=== PATIENT | female | born 1965 | race Two or more races ===

== ENCOUNTER 2018-05-30 12:17 | Inpatient (IN) | payer MEDICAID ==
[2018-05-30 12:31] VITALS: BMI 23.3
[2018-05-30 12:56] VITALS: O2SAT 99
[2018-05-30] MEDS ORDERED: Albuterol HFA 90 mcg/actuation (8 g) INH PRN (14:18)
--- NOTE | 2018-05-30 15:13 | C.PDOC ---
History Of Present Illness 53 y/o female brought in from [facility] for admission with diagnosis of Schizophrenia. Denies SI, HI, or any other physical complaints at this time. Time Seen by Provider: 05/30/18 12:28 Chief Complaint (Nursing): Psychiatric Evaluation History Per: Patient History/Exam Limitations: no limitations Past Medical History Reviewed: Historical Data, Nursing Documentation, Vital Signs Vital Signs: Last Vital Signs Temp Pulse 78 05/30/18 12:56 Resp 17 05/30/18 13:43 BP 121/82 05/30/18 12:56 Pulse Ox 99 05/30/18 12:56 - Medical History PMH: Anemia, Anxiety, Asthma, Bipolar Disorder, Bronchitis, Depression, Deep Vein Thrombosis, Emphysema, Personality Disorder, Pneumonia, Schizophrenia, Sickle Cell Disease, Sexually Transmitted Disease Denies: Diabetes, Hepatitis, HIV, HTN, Chronic Kidney Disease, Seizures Surgical History: No Surg Hx - [facility] Procedures ALCOHOL DETOXIFICATION (04/19/13) EXCISION OF LEFT FOOT SKIN, EXTERNAL APPROACH (05/05/18) EXCISION OF RIGHT FOOT SKIN, EXTERNAL APPROACH (05/05/18) EXCISION OF TOE NAIL, EXTERNAL APPROACH (05/05/18) GROUP PSYCHOTHERAPY (03/10/18) INDIVID PSYCHOTHERAP NEC (07/24/13) INDIVIDUAL PSYCHOTHERAPY, SUPPORTIVE (03/10/18) INSERTION OF INTRALUM DEV INTO INF VENA CAVA, PERC APPROACH (05/24/16) MEDICATION MANAGEMENT (05/02/18) OTHER GROUP THERAPY (07/24/13) PSYCHIA INTERV/EVAL NEC (01/02/14) PSYCHIAT DRUG THERAP NEC (04/30/15) SUPPOR VERBAL PSYCHOTHER (05/25/13) Family History: States: Unknown Family Hx - Social History Hx Tobacco Use: Yes Hx Alcohol Use: Yes Hx Substance Use: Yes (Cocaine) - Immunization History Hx Tetanus Toxoid Vaccination: No Hx Influenza Vaccination: No Hx Pneumococcal Vaccination: No Review Of Systems Except As Marked, All Systems Reviewed And Found Negative. Constitutional: Negative for: Fever, Chills Cardiovascular: Negative for: Chest Pain Respiratory: Negative for: Shortness of Breath Psych: Negative for: Suicidal ideation Physical Exam - Physical Exam Appears: Non-toxic, No Acute Distress, Other (flat affect) Skin: Normal Color, Warm, Dry Head: Atraumatic, Normacephalic Eye(s): bilateral: Normal Inspection Oral Mucosa: Moist Neck: Supple Cardiovascular: Rhythm Regular Respiratory: Normal Breath Sounds, No Rales, No Rhonchi, No Wheezing Gastrointestinal/Abdominal: Soft, No Tenderness Extremity: Normal ROM Neurological/Psych: Oriented x3, Normal Speech ED Course And Treatment - Laboratory Results Result Diagrams: 06/07/18 19:40 06/07/18 19:40 O2 Sat by Pulse Oximetry: 99 (RA) Pulse Ox Interpretation: Normal Medical Decision Making Medical Decision Making: Pt will be admitted under Dr. Hernandez's service. Disposition Doctor Will See Patient In The: Hospital Counseled Patient/Family Regarding: Studies Performed, Diagnosis - Disposition Disposition: HOSPITALIZED Disposition Time: 23:00 Condition: GOOD - Clinical Impression Clinical Impression: Schizophrenia - Scribe Statement The provider has reviewed the documentation as recorded by the Scribe KP All medical record entries made by the Scribe were at my direction and personally dictated by me. I have reviewed the chart and agree that the record accurately reflects my personal performance of the history, physical exam, medical decision making, and the department course for this patient. I have also personally directed, reviewed, and agree with the discharge instructions and disposition.
[2018-05-30] MEDS: Divalproex 500 mg DR Tab PO SCH ×3 (17:30→21:29)
[2018-05-30] MEDS: QUEtiapine 150 mg XR Tab PO SCH (21:30)
[2018-05-31] MEDS: Divalproex 500 mg DR Tab PO SCH ×4 (09:30→22:03)
--- NOTE | 2018-05-31 12:31 | PCM.PSYCH ---
Initial Psychiatric Evaluation - Initial Psychiatric Evaluation Type of Admission: Voluntary Legal Status: Capacity Chief Complaint (in patient's own words): I am not crazy.' History of Present Illness and Precipitating Events: Patient is a 53-year-old female, single with adult children, who is on disability and homeless. She has been living in a snf in [place]. Patient is hard to communicate due to her disorganized thoughts and bizarre behavior. She has a pressured and tangential speech. Patient reports feeling depressed, sad, and miserable since 2009. She states that she gets agitated easily. She denies any current suicidal or homicidal ideation, but she admits attempting suicide by overdosing trazodone and Ativan last year. She admits hearing his boyfriend talking to her and telling her I am mad. She states that she believes his spirit visits her and talks to her. Patient denies being in a detox or heroin program before. She reports that she had multiple hospitalizations in psych unit about 30 times in her life. She denies being diagnosed with a psychiatric disorder stating that I am not schizophrenic or bipolar like other crazy people, I only have behavior problem. Patient was last discharged from [facility] on 05/27/2018. Patient reports using freebase cocaine, about 50 g per month, by smoking with a glass pipe since age 22. She drinks about 6 packs of beer per day for a long time. She smokes 1 ppd. Patient denies any other drug use including benzodiazepines and heroin. She complains about having headache, tremors in her hands, constipation, and feeling cold. She denies nausea, vomiting, stomach pain, numbness or tingling in her extremities. Psych Hx: schizophrenia Medical Hx: COPD, DM type II Family Hx: mother had bipolar disorder and Schizophrenia Current Medications: Active Medications Generic Name Dose Route Start Last Admin Trade Name Freq PRN Reason Stop Dose Admin Albuterol 1 puff 05/30/18 14:18 Ventolin Hfa 90 Mcg/Actuation (8 G) INH RQ4 PRN SOB Divalproex Sodium 500 mg 05/30/18 18:00 05/31/18 09:30 Nas Armando PO Not Given BID BOLIVAR Divalproex Sodium 500 mg 05/30/18 22:00 05/30/18 21:29 Nas Armando PO Not Given HS BOLIVAR Haloperidol 5 mg 05/30/18 14:16 05/31/18 08:06 Haldol PO 5 mg Q4H PRN Administration Agitation Hydroxyzine HCl 50 mg 05/30/18 14:16 05/31/18 06:39 Atarax PO 50 mg Q6H PRN Administration Anxiety Influenza Virus Vaccine 60 mcg 06/02/18 10:00 Fluzone Quad [id number] IM 06/02/18 10:01 .ONCE ONE Lorazepam 1 mg 05/30/18 14:24 05/31/18 08:07 Ativan PO 1 mg Q6H PRN Administration severe anxiety Pneumococcal Polyvalent Vaccine 0.5 ml 06/01/18 10:00 Pneumovax 23 Vaccine IM 06/01/18 10:01 .ONCE ONE Quetiapine Fumarate 100 mg 05/30/18 18:00 05/31/18 09:28 Seroquel PO 100 mg BID BOLIVAR Administration Quetiapine Fumarate 300 mg 05/30/18 22:00 05/30/18 21:30 Seroquel Xr PO Not Given HS BOLIVAR Past Psychiatric History - Past Psychiatric History Previous Treatment History: Inpatient Pertinent Medical Hx (Current Medical&Sleep Prob, Allergies): Allergies Allergy/AdvReac Type Severity Reaction Status Date / Time No Known Allergies Allergy Verified 05/30/18 13:05 Albuterol HFA [Ventolin HFA 90 mcg/actuation (8 g)] 2 puff IH [id number] PRN #1 inhaler 05/27/18 Divalproex [Nas ARMANDO (*BID*)] 500 mg PO TID #45 tcp 05/27/18 Folic Acid 1 mg PO DAILY #14 tab 05/27/18 Gabapentin [Neurontin] 300 mg PO TID #45 cap 05/27/18 Multivitamin Therapeutic Tab [Thera Tab] 1 tab PO 0800 #14 tab 05/27/18 Nicotine 21 mg/24 hr [Nicoderm Cq] 1 patch TD DAILY #14 patch 05/27/18 Quetiapine Fumarate [Seroquel] 200 mg PO DAILY #14 tablet 05/27/18 Quetiapine Fumarate [Seroquel] 300 mg PO HS #14 tab 05/27/18 Thiamine [Vitamin B1 Tab] 100 mg PO DAILY #14 tab 05/27/18 Review of Systems - Review of Systems All systems: reviewed and no additional remarkable complaints except - Psychiatric Psychiatric: Anxiety, Auditory Hallucinations, Irritability, Paranoia, Suicidal Ideation Mental Status Examination - Personal Presentation Personal Presentation: Looks stated age - Affect Affect: Constricted, Depressed - Motor Activity Motor Activity: Calm - Reliability in Providing Information Reliability in Providing Information: Poor, due to alteration in thoughts, Poor, due to altered mood - Speech Speech: Disorganized - Mood Mood: Depressed, Anxious - Formal Thought Process Formal Thought Process: Hallucinations, Delusions, Paranoia, Loosening of associations - Hallucinations/Delusions Hallucinations: Visual, Auditory Delusions: Persecution - Obsessions/Compulsions Obsessions: No Compulsions: No - Cognitive Functions Orientation: Person, Place, Situation, Time Sensorium: Alert Attention/Concentration: Attentive Abstract Thinking: [place] Estimate of Intelligence: Below average Judgement: Imparied, as evidence by: Poor judgement, Imparied, as evidence by: Lack of insight into illness - Risk Risk: Suicidal, Diminished functioning - Limitations Limitations: Living alone DSM 5 DX - DSM 5 DSM 5 Diagnosis: Schizoaffective disorder bipolar type Cocaine use d/o- severe Alcohol use d/o- severe - Recommended/Plan of Treatment Treatment Recommendations and Plan of Treatment: Schizoaffective disorder bipolar type Cocaine use d/o- severe Alcohol use d/o- severe CBT Psychoeducation Supportive therapy As needed medications All risks, benefits and alternatives of the meds discussed, and the pt agreed and understood. Attend groups and activities [place] for abstinence Encourage MAT Smoking cessation with [place] Nicotine patch if needed Depakote Gabapentin for augmentation if needed Seroritul
[2018-05-31] MEDS: QUEtiapine 150 mg XR Tab PO SCH (22:02)
--- NOTE | 2018-05-31 23:14 | PCM.PYCHPN ---
Psychiatric Progress Note - Psychiatric Progress Note Patient seen today, length of contact: 16 min Patient Chief Complaint: I am not crazy.' Problems Identified/Issues Discussed: Patient seen and evaluated, chart reviewed and discussed with the nurse. Pt remained disorganized and internally preoccupied. She remained isolated and withdrawn, and confined to her room. She appeared paranoid and delusional. She is still talking to herself and making a one way conversation. Patient is compliant with medications and denies any side effects. Symptoms are improving but pt needs more time to stabilize. Support and psychoeducation given. Medication Change: Yes Medical Record Reviewed: Yes Mental Status Examination - Cognitive Function Orientation: Person, Place, Situation, Time Memory: Intact Attention: Poor Concentration: Poor Association: Loose Fund of Knowledge: Poor - Mood Mood: Depressed, Anxious - Affect Affect: Constricted, Depressed - Formal Thought Process Formal Thought Process: Hallucinations, Delusions, Paranoia, Loosening of associations - Suicidal Ideation Suicidal Ideation: No - Homicidal Ideation Homicidal Ideation: No Goal/Treatment Plan - Goal/Treatment Plan Need for Continued Stay: Severe depression anxiety, Severe functional impairment Progress Toward Problem(s) and Goals/Treatment Plan: Schizoaffective disorder bipolar type Cocaine use d/o- severe Alcohol use d/o- severe CBT Psychoeducation Supportive therapy As needed medications All risks, benefits and alternatives of the meds discussed, and the pt agreed and understood. Attend groups and activities [place] for abstinence Encourage MAT Smoking cessation with [place] Nicotine patch if needed Depakote Gabapentin for augmentation if needed Seroquel
[2018-06-01] MEDS ORDERED: Pneumococcal 23-Valent Vaccine IM ONE (10:00)
[2018-06-01] MEDS: Divalproex 500 mg DR Tab PO SCH ×3 (10:41→21:37)
[2018-06-01] MEDS: QUEtiapine 150 mg XR Tab PO SCH (21:36)
--- NOTE | 2018-06-02 00:54 | PCM.PYCHPN ---
Psychiatric Progress Note - Psychiatric Progress Note Patient seen today, length of contact: 16 min Patient Chief Complaint: I am not crazy.' Problems Identified/Issues Discussed: Patient seen and evaluated, chart reviewed and discussed with the nurse. Pt remained disorganized and internally preoccupied. She remained isolated and withdrawn, and confined to her room. She appeared paranoid and delusional. She is still talking to herself and making a one way conversation. Patient is compliant with medications and denies any side effects. Symptoms are improving but pt needs more time to stabilize. Support and psychoeducation given. Medication Change: Yes Medical Record Reviewed: Yes Mental Status Examination - Cognitive Function Orientation: Person, Place, Situation, Time Memory: Intact Attention: Poor Concentration: Poor Association: Loose Fund of Knowledge: Poor - Mood Mood: Depressed, Anxious - Affect Affect: Constricted, Depressed - Formal Thought Process Formal Thought Process: Hallucinations, Delusions, Paranoia, Loosening of associations - Suicidal Ideation Suicidal Ideation: No - Homicidal Ideation Homicidal Ideation: No Goal/Treatment Plan - Goal/Treatment Plan Need for Continued Stay: Severe depression anxiety, Severe functional impairment Progress Toward Problem(s) and Goals/Treatment Plan: Schizoaffective disorder bipolar type Cocaine use d/o- severe Alcohol use d/o- severe CBT Psychoeducation Supportive therapy As needed medications All risks, benefits and alternatives of the meds discussed, and the pt agreed and understood. Attend groups and activities [place] for abstinence Encourage MAT Smoking cessation with [place] Nicotine patch if needed Depakote Gabapentin for augmentation if needed Seroquel - Smoking Cessation Smoking Cessation Initiated: No
[2018-06-02] MEDS ORDERED: Influenza Vaccine 60 MCG/0.5 ML SYR (3 yr & up) IM ONE (10:00)
[2018-06-02] MEDS: Divalproex 500 mg DR Tab PO SCH ×3 (10:45→21:34)
--- NOTE | 2018-06-02 15:20 | PCM.BM ---
<NoarobinRachel - Last Filed: 06/02/18 15:18> Treatment Plan Problems - Problems identified on initial assessmt Substance Abuse Date Initiated: 05/30/18 Time Initiated: 13:00 Assessment reference: NA Status: Active Treatment assets and liabiliti Patient Assests: motivated, self-reliant, ADL independent, physically healthy, negotiates basic needs Patient Liabilities: poor support system, substance abuse - Milieu Protocol Maintain good personal hygiene: daily Encourage regular showers, daily Remind patient to perform daily oral care, daily Assist patient to perform ADL's Maintain personal safety: every shift Educate patient to report safety concerns to staff, every shift Monitor environment for contraband/sharps Medication safety: Monitor for expected outcome, potential side effects: every shift, Assess barriers to learning: every shift, Assess readiness for medication education: every shift Milieu Narrative: Schizoaffective disorder bipolar type Cocaine use d/o- severe Alcohol use d/o- severe CBT Psychoeducation Supportive therapy As needed medications All risks, benefits and alternatives of the meds discussed, and the pt agreed and understood. Attend groups and activities [place] for abstinence Encourage MAT Smoking cessation with [place] Nicotine patch if needed Depakote Gabapentin for augmentation if needed Seroquel Discharge/Continuing Care - Treatment Team Participation Patient/Family/SO Statement: Schizoaffective disorder bipolar type Cocaine use d/o- severe Alcohol use d/o- severe CBT Psychoeducation Supportive therapy As needed medications All risks, benefits and alternatives of the meds discussed, and the pt agreed and understood. Attend groups and activities [place] for abstinence Encourage MAT Smoking cessation with [place] Nicotine patch if needed Depakote Gabapentin for augmentation if needed Seroquel <Kanika Jean - Last Filed: 06/05/18 11:49> Family Contact Family involvement: Family/SO is involved Family contact: Patient declines to allow family contact at present - Goals for Treatment Patient goals for treatment: "I need a medical doctor for my back pain." Discharge/Continuing Care - Education Needs Education Needs: Patient Medication, Patient Coping Skills, Patient Placement options, Patient Community resources - Discharge Discharge Criteria: Tolerates medication w/o severe side effects, Reduction of target symptoms Discharge to:: [facility] - Treatment Team Participation Discussed with Family/SO: No Was Patient/Family/SO present at Treatment Team Meeting: Yes
[2018-06-02] MEDS: QUEtiapine 150 mg XR Tab PO SCH (21:26)
--- NOTE | 2018-06-02 22:23 | PCM.PYCHPN ---
Psychiatric Progress Note - Psychiatric Progress Note Patient seen today, length of contact: 15 minutes Patient Chief Complaint: I am feeling better. Problems Identified/Issues Discussed: Patient seen, chart reviewed, case discussed with the staff. Issues related to illness and treatment were discussed with the patient and staff. Reported compliant with treatment with no adverse affects. Tolerating treatment very well. Patient reported feeling better with the treatment. Staff reported that patient was very intrusive and loud before. Patient was calm and cooperative during evaluation. Awake, alert and oriented 3. No psychomotor activity, good eye contact, memory intact. Aftercare discussed with the patient. Wants to go to [facility]. Denied any delusions, auditory or visual hallucinations, suicidal ideations or homicidal ideations at the time of evaluation. Medical Problems: Diabetes mellitus COPD Diagnostic Results: Reviewed DSM 5 Symptoms Update: Improving with treatment Medication Change: No Medical Record Reviewed: Yes Mental Status Examination - Cognitive Function Orientation: Person, Place, Situation, Time Memory: Intact Attention: WNL Concentration: WNL Association: WNL Fund of Knowledge: [facility] Decription of patient's judgement and insights: Good - Mood Mood: Euphoric - Affect Affect: Other (Somewhat manic) - Speech Speech: Appropriate - Formal Thought Process Formal Thought Process: No Impairment Psychotic Thoughts and Behaviors: None - Suicidal Ideation Suicidal Ideation: No - Homicidal Ideation Homicidal Ideation: No Goal/Treatment Plan - Goal/Treatment Plan Need for Continued Stay: Remain at risks for inpatient hospitalization, Discharge may exacerbated symptoms, Severe functional impairment Progress Toward Problem(s) and Goals/Treatment Plan: Patient/staff education. Supportive therapy. Continue treatment as before. Patient wants to go to [facility] for follow-up care after discharge from the hospital. Estimated Date of D/C: 06/06/18 - Smoking Cessation Smoking Cessation Initiated: Yes
[2018-06-03] MEDS: Divalproex 500 mg DR Tab PO SCH ×3 (09:55→21:23)
--- NOTE | 2018-06-03 14:42 | PCM.PYCHPN ---
Psychiatric Progress Note - Psychiatric Progress Note Patient seen today, length of contact: 15 minutes Patient Chief Complaint: I still see spirits in my room. People around me see sometimes demons behind me. Problems Identified/Issues Discussed: Patient seen, chart reviewed, case discussed with the staff. Issues related to illness and treatment were discussed with the patient and staff. Reported compliant with treatment with no adverse affects. Tolerating treatment very well. Patient reported feeling better but reported still seeing spirits in her room. Patient also reported that she heard that someone was saying there was a demon behind her. Staff reported that patient was very intrusive and loud before. Patient was calm and cooperative during evaluation. Awake, alert and oriented 3. No psychomotor activity, good eye contact, memory intact. Aftercare discussed with the patient. Wants to go to [facility]. Denied any delusions, auditory or visual hallucinations, suicidal ideations or homicidal ideations at the time of evaluation. Medical Problems: Diabetes mellitus COPD Diagnostic Results: Reviewed DSM 5 Symptoms Update: Some improvement with treatment but still needs time for stabilization. Medication Change: No Medical Record Reviewed: Yes Mental Status Examination - Cognitive Function Orientation: Person, Place, Situation, Time Memory: Intact Attention: WNL Concentration: WNL Association: [facility] Fund of Knowledge: [facility] Decription of patient's judgement and insights: Good - Mood Mood: Euphoric - Affect Affect: Other (Somewhat manic) - Speech Speech: Appropriate - Formal Thought Process Formal Thought Process: Delusions, Loosening of associations, Flight of ideas, Circumstantial Psychotic Thoughts and Behaviors: None - Suicidal Ideation Suicidal Ideation: No - Homicidal Ideation Homicidal Ideation: No Goal/Treatment Plan - Goal/Treatment Plan Need for Continued Stay: Remain at risks for inpatient hospitalization, Discharge may exacerbated symptoms, Severe functional impairment Progress Toward Problem(s) and Goals/Treatment Plan: Patient/staff education. Supportive therapy. Continue treatment as before. Patient wants to go to [facility] for follow-up care after discharge from the hospital. Estimated Date of D/C: 06/06/18 - Smoking Cessation Smoking Cessation Initiated: Yes
[2018-06-03] MEDS: QUEtiapine 200 mg XR Tab PO SCH (21:22)
[2018-06-04] MEDS: Divalproex 500 mg DR Tab PO SCH ×3 (09:56→21:40)
--- NOTE | 2018-06-04 18:46 | PCM.PYCHPN ---
Psychiatric Progress Note - Psychiatric Progress Note Patient seen today, length of contact: 15 minutes Patient Chief Complaint: I still see spirits in my room. Problems Identified/Issues Discussed: Patient seen, chart reviewed, case discussed with the staff. Issues related to illness and treatment were discussed with the patient and staff. Reported compliant with treatment with no adverse affects. Tolerating treatment very well. Patient reported feeling better but reported still seeing spirits in her room. Staff reported that patient was telling them that she left her spirit somewhere else. We will increase the dose of fluphenazine to 10 mg twice a day. Staff reported that patient is still very intrusive and loud at times. Patient was calm and cooperative during evaluation. Awake, alert and oriented 3. No psychomotor activity, good eye contact, memory intact. Aftercare discussed with the patient. Wants to go to [facility]. Denied any delusions, auditory or visual hallucinations, suicidal ideations or homicidal ideations at the time of evaluation. Medical Problems: Diabetes mellitus COPD Diagnostic Results: Reviewed DSM 5 Symptoms Update: Some improvement with treatment but patient needs more time for stabilization. Medication Change: No Medical Record Reviewed: Yes Mental Status Examination - Cognitive Function Orientation: Person, Place, Situation, Time Memory: Intact Attention: WNL Concentration: WNL Association: WNL Fund of Knowledge: [facility] Decription of patient's judgement and insights: Good - Mood Mood: Anxious - Affect Affect: Constricted - Speech Speech: Appropriate - Formal Thought Process Formal Thought Process: Delusions, Loosening of associations, Flight of ideas, Circumstantial Psychotic Thoughts and Behaviors: None - Suicidal Ideation Suicidal Ideation: No - Homicidal Ideation Homicidal Ideation: No Goal/Treatment Plan - Goal/Treatment Plan Need for Continued Stay: Remain at risks for inpatient hospitalization, Discharge may exacerbated symptoms, Severe functional impairment Progress Toward Problem(s) and Goals/Treatment Plan: Patient/staff education. Supportive therapy. We will increase the dose of fluphenazine to 10 mg twice a day. Continue rest of the treatment as before. Patient wants to go to [facility] for follow-up care after discharge from the hospital. Estimated Date of D/C: 06/06/18 - Smoking Cessation Smoking Cessation Initiated: Yes
[2018-06-04] MEDS: QUEtiapine 200 mg XR Tab PO SCH (21:40)
[2018-06-05] MEDS: Divalproex 500 mg DR Tab PO SCH ×3 (10:30→21:16)
--- NOTE | 2018-06-05 17:57 | PCM.PYCHPN ---
Psychiatric Progress Note - Psychiatric Progress Note Patient seen today, length of contact: 15 minutes Patient Chief Complaint: Today I'm feeling better. I'm not seeing any spirits. Also I am more calm. Problems Identified/Issues Discussed: Patient seen, chart reviewed, case discussed with the staff. Issues related to illness and treatment were discussed with the patient and staff. Reported compliant with treatment with no adverse affects. Tolerating treatment very well. Patient reported feeling better. Patient reported noticing any spirits today and also feeling more calm after increasing dose of Prolixin. Staff also confirmed the above. Patient was calm and cooperative. Awake, alert and oriented 3. No psychomotor activity, good eye contact, memory intact. Aftercare discussed with the patient. Denied any delusions, auditory or visual hallucinations, suicidal ideations or homicidal ideations at the time of evaluation. Medical Problems: Diabetes mellitus COPD Diagnostic Results: Reviewed DSM 5 Symptoms Update: Improving with treatment. Still needs more time for stabilization. Medication Change: No Medical Record Reviewed: Yes Mental Status Examination - Cognitive Function Orientation: Person, Place, Situation, Time Memory: Intact Attention: WNL Concentration: WNL Association: WNL Fund of Knowledge: WNL Decription of patient's judgement and insights: Good - Mood Mood: Anxious (Much less than before) - Affect Affect: Other (Appropriate) - Speech Speech: Appropriate - Formal Thought Process Formal Thought Process: Loosening of associations, Flight of ideas Psychotic Thoughts and Behaviors: None - Suicidal Ideation Suicidal Ideation: No - Homicidal Ideation Homicidal Ideation: No Goal/Treatment Plan - Goal/Treatment Plan Need for Continued Stay: Remain at risks for inpatient hospitalization, Discharge may exacerbated symptoms, Severe functional impairment Progress Toward Problem(s) and Goals/Treatment Plan: Patient/staff education. Supportive therapy. Continue treatment as before. Patient wants to go to [facility] for follow-up care after discharge from the hospital. Estimated Date of D/C: 06/06/18 - Smoking Cessation Smoking Cessation Initiated: Yes
[2018-06-05] MEDS: QUEtiapine 200 mg XR Tab PO SCH (21:16)
[2018-06-06] MEDS: Divalproex 500 mg DR Tab PO SCH ×3 (09:22→21:28)
--- NOTE | 2018-06-06 19:19 | PCM.PYCHPN ---
Psychiatric Progress Note - Psychiatric Progress Note Patient seen today, length of contact: 15 minutes Patient Chief Complaint: I am feeling much better. Problems Identified/Issues Discussed: Patient seen, chart reviewed, case discussed with the staff. Issues related to illness and treatment were discussed with the patient and staff. Reported compliant with treatment with no adverse affects. Tolerating treatment very well. Patient reported feeling better. Patient reported noticing any spirits today and also feeling more calm after increasing dose of Prolixin. Staff also confirmed the above. Patient was calm and cooperative. Awake, alert and oriented 3. No psychomotor activity, good eye contact, memory intact. Aftercare discussed with the patient. Denied any delusions, auditory or visual hallucinations, suicidal ideations or homicidal ideations at the time of evaluation. Medical Problems: Diabetes mellitus COPD Diagnostic Results: Reviewed DSM 5 Symptoms Update: Improving with treatment. Medication Change: No Medical Record Reviewed: Yes Mental Status Examination - Cognitive Function Orientation: Person, Place, Situation, Time Memory: Intact Attention: WNL Concentration: WNL Association: WNL Fund of Knowledge: [facility] Decription of patient's judgement and insights: Good - Mood Mood: Anxious (Much less than before) - Affect Affect: Other (Appropriate) - Speech Speech: Appropriate - Formal Thought Process Formal Thought Process: Loosening of associations, Flight of ideas Psychotic Thoughts and Behaviors: None - Suicidal Ideation Suicidal Ideation: No - Homicidal Ideation Homicidal Ideation: No Goal/Treatment Plan - Goal/Treatment Plan Need for Continued Stay: Remain at risks for inpatient hospitalization, Discharge may exacerbated symptoms, Severe functional impairment Progress Toward Problem(s) and Goals/Treatment Plan: Patient/staff education. Supportive therapy. Continue treatment as before. Patient wants to go to [facility] for follow-up care after discharge from the hospital. Estimated Date of D/C: 06/10/18 - Smoking Cessation Smoking Cessation Initiated: Yes
[2018-06-06] MEDS: QUEtiapine 200 mg XR Tab PO SCH (21:28)
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
[2018-06-07] MEDS: Divalproex 500 mg DR Tab PO SCH ×3 (10:35→21:15)
[2018-06-07 11:02] VITALS: RESP 20; TEMP 97.5
[2018-06-07] MEDS: Simethicone 80 mg Chewtab PO SCH ×3 (14:27→21:14)
--- NOTE | 2018-06-07 17:29 | RAD ---
PROCEDURE: Left Knee Radiographs. HISTORY: Fall, pain COMPARISON: None. FINDINGS: BONES: No acute displaced fracture. Degenerative changes. JOINTS: No dislocation. Joint space narrowing most prominent at the medial compartment. JOINT EFFUSION: No significant joint effusion. OTHER FINDINGS: None. IMPRESSION: Degenerative changes. No acute displaced fracture, dislocation, or significant joint effusion identified. If symptoms persist, or if there is continued clinical concern, x-ray follow-up in 7-10 days should be considered.
--- NOTE | 2018-06-07 18:05 | RAD ---
Indication: Fall, hip pain Left hip with pelvis Comparison: None available Findings: No acute displaced fracture or dislocation identified. IVC filter, partially imaged. Sacroiliac joints appear intact. Partially imaged moderate constipation. Soft tissues appear unremarkable. No evidence of radiopaque foreign body. Impression: No acute displaced fracture or dislocation evident. If high clinical index of suspicion, suggest cross-sectional imaging for further evaluation. Otherwise, if symptoms persist or if there is continued clinical concern, x-ray follow-up in 7-10 days should be considered. IVC filter. Partially imaged moderate constipation.
--- NOTE | 2018-06-07 18:10 | CP.PCM.PCO ---
Physician Communication Note - Physician Communication Note Physician Communication Note: we are awaiting blood work to restart xarelto for known dvt
[2018-06-07 19:45] LABS: BASO % 0.7 % (0.0-2.0); EOS # 0.3 K/uL (0.0-0.7); EOS % 6.3 % (0.0-4.0); HEMOGLOBIN 12.6 g/dL (11.0-16.0); LYMPH # 1.5 K/uL (1.0-4.3); LYMPH % 35.3 % (20.0-40.0); MEAN CELL VOLUME 88.6 fL (81.0-99.0); MEAN CORPUSCULAR HEMOGLOBIN 28.1 pg (27.0-31.0); MEAN CORPUSCULAR HGB CONC 31.8 g/dL (33.0-37.0); MEAN PLATELET VOLUME 9.3 fL (7.2-11.7); MONO # 0.4 K/uL (0.0-0.8); MONO % 9.1 % (0.0-10.0); NEUT % 48.6 % (50.0-75.0); NRBC % 0.2 % (0.0-2.0); RBC 4.47 Mil/uL (3.80-5.20); RED CELL DISTRIBUTION WIDTH 17.4 % (11.5-14.5); WHITE BLOOD COUNT 4.2 K/uL (4.8-10.8)
[2018-06-07 19:59] LABS: ALB/GLOB RATIO 1.4 (1.0-2.1); ALBUMIN 4.3 g/dL (3.5-5.0); ALT/SGPT 27 U/L (9-52); AST/SGOT 27 U/L (14-36); BLOOD UREA NITROGEN 29 mg/dL (7-17); CALCIUM 9.7 mg/dl (8.6-10.4); GFR NON-AFRICAN AMERICAN > 60
[2018-06-07] MEDS: QUEtiapine 200 mg XR Tab PO SCH (21:14)
[2018-06-08] MEDS: Simethicone 80 mg Chewtab PO SCH ×4 (10:25→22:37)
[2018-06-08] MEDS: Divalproex 500 mg DR Tab PO SCH ×3 (10:26→22:37)
[2018-06-08 14:30] LABS: INR 1.1; PROTHROMBIN TIME 12.2 SECONDS (9.7-12.2)
[2018-06-08] MEDS: Naproxen 275 mg Tab PO PRN (17:55)
--- NOTE | 2018-06-08 18:01 | CP.PCM.PN ---
Subjective - Date & Time of Evaluation Date of Evaluation: 06/08/18 Time of Evaluation: 18:01 Objective - Vital Signs/Intake and Output Vital Signs (last 24 hours): Temp Pulse Resp BP Pulse Ox 97.5 F L 103 H 20 111/77 99 06/07/18 11:01 06/08/18 16:07 06/07/18 11:01 06/08/18 16:07 05/30/18 15:15 - Medications Medications: Current Medications Acetaminophen (Tylenol 325mg Tab) 650 mg PO Q6 PRN PRN Reason: Pain, Mild (1-3) Last Admin: 06/06/18 23:25 Dose: 650 mg Albuterol (Ventolin Hfa 90 Mcg/Actuation (8 G)) 1 puff INH RQ4 PRN PRN Reason: SOB Last Admin: 06/02/18 01:20 Dose: 1 puff Apixaban (Eliquis) 5 mg PO BID [facility] Last Admin: 06/08/18 17:11 Dose: 5 mg Benztropine Mesylate (Cogentin) 1 mg PO BID [facility] Last Admin: 06/08/18 17:11 Dose: 1 mg Divalproex Sodium (Depakote Dr) 500 mg PO BID [facility] Last Admin: 06/08/18 17:11 Dose: 500 mg Divalproex Sodium (Depakote Dr) 500 mg PO HS [facility] Last Admin: 06/07/18 21:15 Dose: 500 mg Docusate Sodium (Colace) 100 mg PO DAILY [facility] Last Admin: 06/08/18 10:25 Dose: 100 mg Fluphenazine HCl (Prolixin) 10 mg PO BID [facility] Last Admin: 06/08/18 17:10 Dose: 10 mg Gabapentin (Neurontin) 300 mg PO BID [facility] Last Admin: 06/08/18 17:11 Dose: 300 mg Haloperidol (Haldol) 5 mg PO Q4H PRN PRN Reason: Agitation Last Admin: 06/08/18 13:45 Dose: 5 mg Hydroxyzine HCl (Atarax) 50 mg PO Q6H PRN PRN Reason: Anxiety Last Admin: 06/08/18 13:45 Dose: 50 mg Naproxen (Anaprox) 275 mg PO BID PRN PRN Reason: Pain, Mild (1-3) Last Admin: 06/08/18 17:55 Dose: 275 mg Nicotine (Nicoderm Cq) 1 patch TD DAILY [facility] Last Admin: 06/08/18 10:25 Dose: 1 patch Quetiapine Fumarate (Seroquel) 100 mg PO BID [facility] Last Admin: 06/08/18 17:11 Dose: 100 mg Quetiapine Fumarate (Seroquel Xr) 400 mg PO HS [facility] Last Admin: 06/07/18 21:14 Dose: 400 mg Simethicone (Mylicon Chew Tab) 80 mg PO QID [facility] Last Admin: 06/08/18 17:10 Dose: 80 mg - Labs Labs: 06/07/18 19:40 06/07/18 19:40 PT 12.2 SECONDS (9.7-12.2) 06/08/18 14:22 INR 1.1 06/08/18 14:22
--- NOTE | 2018-06-08 18:01 | CP.PCM.PN ---
Subjective - Date & Time of Evaluation Date of Evaluation: 06/08/18 Time of Evaluation: 18:02 - Subjective Subjective: PGY-2 Progress Note Patient seen and examined at bedside. Per nursing no acute events occurred overnight. Patient agigtated during today's visit. ROS was limited due to emotional state. Objective - Vital Signs/Intake and Output Vital Signs (last 24 hours): Temp Pulse Resp BP Pulse Ox 97.5 F L 103 H 20 111/77 99 06/07/18 11:01 06/08/18 16:07 06/07/18 11:01 06/08/18 16:07 05/30/18 15:15 - Medications Medications: Current Medications Acetaminophen (Tylenol 325mg Tab) 650 mg PO Q6 PRN PRN Reason: Pain, Mild (1-3) Last Admin: 06/06/18 23:25 Dose: 650 mg Albuterol (Ventolin Hfa 90 Mcg/Actuation (8 G)) 1 puff INH RQ4 PRN PRN Reason: SOB Last Admin: 06/02/18 01:20 Dose: 1 puff Apixaban (Eliquis) 5 mg PO BID [facility] Last Admin: 06/08/18 17:11 Dose: 5 mg Benztropine Mesylate (Cogentin) 1 mg PO BID [facility] Last Admin: 06/08/18 17:11 Dose: 1 mg Divalproex Sodium (Depakote Dr) 500 mg PO BID [facility] Last Admin: 06/08/18 17:11 Dose: 500 mg Divalproex Sodium (Depakote Dr) 500 mg PO HS [facility] Last Admin: 06/07/18 21:15 Dose: 500 mg Docusate Sodium (Colace) 100 mg PO DAILY [facility] Last Admin: 06/08/18 10:25 Dose: 100 mg Fluphenazine HCl (Prolixin) 10 mg PO BID [facility] Last Admin: 06/08/18 17:10 Dose: 10 mg Gabapentin (Neurontin) 300 mg PO BID [facility] Last Admin: 06/08/18 17:11 Dose: 300 mg Haloperidol (Haldol) 5 mg PO Q4H PRN PRN Reason: Agitation Last Admin: 06/08/18 13:45 Dose: 5 mg Hydroxyzine HCl (Atarax) 50 mg PO Q6H PRN PRN Reason: Anxiety Last Admin: 06/08/18 13:45 Dose: 50 mg Naproxen (Anaprox) 275 mg PO BID PRN PRN Reason: Pain, Mild (1-3) Last Admin: 06/08/18 17:55 Dose: 275 mg Nicotine (Nicoderm Cq) 1 patch TD DAILY [facility] Last Admin: 06/08/18 10:25 Dose: 1 patch Quetiapine Fumarate (Seroquel) 100 mg PO BID [facility] Last Admin: 06/08/18 17:11 Dose: 100 mg Quetiapine Fumarate (Seroquel Xr) 400 mg PO HS [facility] Last Admin: 06/07/18 21:14 Dose: 400 mg Simethicone (Mylicon Chew Tab) 80 mg PO QID [facility] Last Admin: 06/08/18 17:10 Dose: 80 mg - Labs Labs: 06/07/18 19:40 06/07/18 19:40 PT 12.2 SECONDS (9.7-12.2) 06/08/18 14:22 INR 1.1 06/08/18 14:22 - Head Exam Head Exam: ATRAUMATIC, NORMAL INSPECTION - Eye Exam Eye Exam: EOMI, Normal appearance, PERRL. absent: Periorbital tenderness Pupil Exam: NORMAL ACCOMODATION, PERRL - ENT Exam ENT Exam: Mucous Membranes Moist, Normal Oropharynx. absent: Normal External Ear Exam - Respiratory Exam Respiratory Exam: Clear to Ausculation Bilateral, NORMAL BREATHING PATTERN. absent: Prolonged Expiratory Phase, Respiratory Distress - Cardiovascular Exam Cardiovascular Exam: REGULAR RHYTHM, RRR, +S1, +S2. absent: Rubs - GI/Abdominal Exam GI & Abdominal Exam: Soft, Normal Bowel Sounds. absent: Hyperactive Bowel Sounds - Neurological Exam Neurological Exam: Alert, Awake, Normal Gait, Oriented x3 - Psychiatric Exam Psychiatric exam: Normal Affect, Normal Mood. absent: Depressed - Skin Skin Exam: Dry, Intact Assessment and Plan - Assessment and Plan (Free Text) Plan: 53 year old female with a past medical history od schizophrenia, depression, esble uti, copd, right lower extremity dvt, sickle cell train, dm2 who was consulted by medicine for left lower extremity pain for 3 days. Plan: Left lower extremity pain -Patient has history of DVT in Right leg s/p IVC filter placement. Patient was taking Xarelto up until about a month and a half ago. Patient [place] -Arterial doppler ordered. Will f/u with results -Venous duplex ordered. Will f/u with results -Left knee xray ordered :Negative -Left hip xray ordered :Negative CRP: 2.1 -ESR,,RF ordered. Will f/u with results. Medications: Eliquis 5mg PO BID Hx Schizophrenia -Managment per Psychiartry -Prolixin 10mg PO BID Hx Depression -Managment per Psychiatry COPD -Ventolin 1 puff INH RQ4 PRN Tobacco abuse -Nicotine patch 21mg Daily Constipation/gas -Colace 100 MG PO Daily -Simethacone 80mg PO QID Dispo: Upon signing off/discharge patient will be provided Eliquis voucher. Will continue to follow and this time and await doppler and duplex studies of the lower extremities. Plan discussed with Dr. Sebastian. Beni Infante, PGY-2
[2018-06-08] MEDS: QUEtiapine 200 mg XR Tab PO SCH (22:37)
--- NOTE | 2018-06-09 06:36 | PCM.PYCHPN ---
Psychiatric Progress Note - Psychiatric Progress Note Patient seen today, length of contact: 15 minutes Patient Chief Complaint: I FEEL BETTER Problems Identified/Issues Discussed: PT SEEN AND EXAMINED D/W TEAM D/W PT HOW SUBSTANCE ABUSE AFFECTS MENTAL HEALTH Medical Problems: NOTHING ACUTE Diagnostic Results: REVIEWED Medication Change: No Medical Record Reviewed: Yes Mental Status Examination - Cognitive Function Orientation: Person, Place, Situation, Time Memory: Intact Attention: WNL Concentration: WNL Association: WNL - Mood Mood: Anxious (Much less than before) - Affect Affect: Other (APPROPRIATE) - Speech Speech: Appropriate - Formal Thought Process Formal Thought Process: Hallucinations, Delusions, Loosening of associations, Flight of ideas, Other (LESS INTENSE SYMPTOMOLOGY) - Suicidal Ideation Suicidal Ideation: No - Homicidal Ideation Homicidal Ideation: No Goal/Treatment Plan - Goal/Treatment Plan Need for Continued Stay: Remain at risks for inpatient hospitalization, Severe functional impairment Progress Toward Problem(s) and Goals/Treatment Plan: SCHIZOAFFECTIVE DISORDER: DEPAKOTE SEROQUEL SUPPORTIVE PSYCHOTHERAPY ALCOHOL USE DISORDER [place] CBT GROUP THERAPY COCAINE USE DISORDER: [place] CBT PSYCHOEDUCATION Estimated Date of D/C: 06/10/18 - Smoking Cessation Smoking Cessation Initiated: No
--- NOTE | 2018-06-09 06:42 | PCM.PYCHPN ---
Psychiatric Progress Note - Psychiatric Progress Note Patient seen today, length of contact: 15 minutes Patient Chief Complaint: I NEED TO FIND A PLACE TO LIVE Problems Identified/Issues Discussed: PT SEEN AND EXANMINED D/W TEAM D/W PT THE NEED FOR ADHERENCE TO TREATMENT Medical Problems: NOTHING ACUTE Diagnostic Results: REVIEWED Medication Change: No Medical Record Reviewed: Yes Mental Status Examination - Cognitive Function Orientation: Person, Place, Situation, Time Memory: Intact Attention: WNL Concentration: WNL Association: WNL Fund of Knowledge: WNL - Mood Mood: Anxious (Much less than before) - Affect Affect: Blunted, Other (APPROPRIATE) - Speech Speech: Appropriate - Formal Thought Process Formal Thought Process: Hallucinations, Delusions, Paranoia, Loosening of associations, Flight of ideas, Other (LESS INTENSE SYMPTOMOLOGY) - Suicidal Ideation Suicidal Ideation: No - Homicidal Ideation Homicidal Ideation: No Goal/Treatment Plan - Goal/Treatment Plan Need for Continued Stay: Remain at risks for inpatient hospitalization, Discharge may exacerbated symptoms, Severe functional impairment Progress Toward Problem(s) and Goals/Treatment Plan: SCHIZOAFFECTIVE D/O DEPAKOTE SEROQUEL [place] CBT SUPPORTIVE PSYCHOTHERAPY ALCOHOL USE DISORDER: [place] CBT COCAINE USE DISORDER: CBT [place] SUPPORTIVE PSYCHOTHERAPY Estimated Date of D/C: 06/10/18 - Smoking Cessation Smoking Cessation Initiated: No
--- NOTE | 2018-06-09 07:42 | CP.PCM.PN ---
<Bola Monique - Last Filed: 06/09/18 17:40> Subjective - Date & Time of Evaluation Date of Evaluation: 06/09/18 Time of Evaluation: 07:42 - Subjective Subjective: Bola oMnique PGY-1, medicine progress note Pt seen and examined at bedside. No acute events overnight. Pt is resting comfortably and eating breakfast. She states that the left lower leg pain only occurs when she is laying down. Pt is complaining of lower back gaxiola bilatrally, which she states is chronic. Pt denies fever, chills, chest pain, sob, abdominal pain, n/v/d, urinary complaints, bowel changes, hematochezia, melena, paresthesias. Objective - Vital Signs/Intake and Output Vital Signs (last 24 hours): Temp Pulse Resp BP Pulse Ox 97.5 F L 103 H 20 111/77 99 06/07/18 11:01 06/08/18 16:07 06/07/18 11:01 06/08/18 16:07 05/30/18 15:15 - Medications Medications: Current Medications Acetaminophen (Tylenol 325mg Tab) 650 mg PO Q6 PRN PRN Reason: Pain, Mild (1-3) Last Admin: 06/06/18 23:25 Dose: 650 mg Albuterol (Ventolin Hfa 90 Mcg/Actuation (8 G)) 1 puff INH RQ4 PRN PRN Reason: SOB Last Admin: 06/02/18 01:20 Dose: 1 puff Apixaban (Eliquis) 5 mg PO BID [facility] Last Admin: 06/08/18 17:11 Dose: 5 mg Benztropine Mesylate (Cogentin) 1 mg PO BID [facility] Last Admin: 06/08/18 17:11 Dose: 1 mg Divalproex Sodium (Depakote Dr) 500 mg PO BID [facility] Last Admin: 06/08/18 17:11 Dose: 500 mg Divalproex Sodium (Depakote Dr) 500 mg PO HS [facility] Last Admin: 06/08/18 22:37 Dose: 500 mg Docusate Sodium (Colace) 100 mg PO DAILY [facility] Last Admin: 06/08/18 10:25 Dose: 100 mg Fluphenazine HCl (Prolixin) 10 mg PO BID [facility] Last Admin: 10/14/18 17:10 Dose: 10 mg Gabapentin (Neurontin) 300 mg PO BID [facility] Last Admin: 06/08/18 17:11 Dose: 300 mg Haloperidol (Haldol) 5 mg PO Q4H PRN PRN Reason: Agitation Last Admin: 06/08/18 22:37 Dose: 5 mg Hydroxyzine HCl (Atarax) 50 mg PO Q6H PRN PRN Reason: Anxiety Last Admin: 06/08/18 22:37 Dose: 50 mg Naproxen (Anaprox) 275 mg PO BID PRN PRN Reason: Pain, Mild (1-3) Last Admin: 06/08/18 17:55 Dose: 275 mg Nicotine (Nicoderm Cq) 1 patch TD DAILY [facility] Last Admin: 06/08/18 10:25 Dose: 1 patch Quetiapine Fumarate (Seroquel) 100 mg PO BID [facility] Last Admin: 06/08/18 17:11 Dose: 100 mg Quetiapine Fumarate (Seroquel Xr) 400 mg PO HS [facility] Last Admin: 06/08/18 22:37 Dose: 400 mg Simethicone (Mylicon Chew Tab) 80 mg PO QID [facility] Last Admin: 06/08/18 22:37 Dose: 80 mg - Labs Labs: 06/07/18 19:40 06/07/18 19:40 PT 12.2 SECONDS (9.7-12.2) 06/08/18 14:22 INR 1.1 06/08/18 14:22 - Constitutional Appears: Non-toxic, No Acute Distress - Head Exam Head Exam: NORMAL INSPECTION - Eye Exam Eye Exam: EOMI, Normal appearance - ENT Exam ENT Exam: Mucous Membranes Moist - Neck Exam Neck Exam: Normal Inspection - Respiratory Exam Respiratory Exam: Clear to Ausculation Bilateral, NORMAL BREATHING PATTERN. absent: Rales, Rhonchi, Wheezes, Respiratory Distress - Cardiovascular Exam Cardiovascular Exam: REGULAR RHYTHM, +S1, +S2 - GI/Abdominal Exam GI & Abdominal Exam: Soft, Normal Bowel Sounds. absent: Distended, Firm, Guar ding, Rigid, Tenderness - Extremities Exam Additional comments: (+) left lower extremity is swollen, from the knee down, when compared to right lower extremity - Back Exam Back Exam: NORMAL INSPECTION, paraspinal tenderness (mild bilateral paravertebral lumbar tenderness ). absent: CVA tenderness (L), CVA tenderness ( R), vertebral tenderness - Neurological Exam Neurological Exam: Alert, Awake, Normal Gait - Psychiatric Exam Psychiatric exam: Normal Affect, Normal Mood - Skin Skin Exam: Dry, Warm Additional comments: chronic venous stasis changes bilaterally Assessment and Plan - Assessment and Plan (Free Text) Assessment: 53 year old female with a past medical history od schizophrenia, depression, esbl uti, copd, right lower extremity dvt, sickle cell train, dm2 who was consulted by medicine for left lower extremity pain for 3 days. Plan: Left lower extremity pain -Patient has history of DVT in Right leg s/p IVC filter placement. Patient was taking Xarelto up until about a month and a half ago. Patient reports her medicine being [place] light rail. -Left lower extremity doppler prelim shows DVT; f/u official report -Left knee xray ordered :Negative -Left hip xray ordered :Negative CRP: 2.1, normal -Continue Eliquis 5 mg PO BID -Pt provided with prescription and voucher for eliquis Hx Schizophrenia -Managment per Psychiartry -Prolixin 10mg PO BID Hx Depression -Managment per Psychiatry COPD -Ventolin 1 puff INH RQ4 PRN Tobacco abuse -Nicotine patch 21mg Daily Constipation/gas -Colace 100 MG PO Daily -Simethacone 80mg PO QID Dispo: Pt instructed to continue Eliquis 5 mg PO BID as treatment for DVT. Plan discussed with attending physician, Dr. Willis <David Willis - Last Filed: 06/19/18 18:01> Objective - Vital Signs/Intake and Output Vital Signs (last 24 hours): Temp Pulse Resp BP Pulse Ox 97.5 F L 91 H 20 128/82 99 06/07/18 11:01 06/09/18 16:01 06/07/18 11:01 06/09/18 16:01 06/12/18 16:45 - Labs Labs: 06/07/18 19:40 06/07/18 19:40 PT 12.2 SECONDS (9.7-12.2) 06/08/18 14:22 INR 1.1 06/08/18 14:22 Attending/Attestation - Attestation I have personally seen and examined this patient.: Yes I have fully participated in the care of the patient.: Yes I have reviewed all pertinent clinical information, including history, physical exam and plan: Yes Notes (Text): Left lower extremity pain -Patient has history of DVT in Right leg s/p IVC filter placement. Patient was taking Xarelto up until about a month and a half ago. Patient reports her [place] rail. -Left lower extremity doppler prelim shows acute DVT start Elequis
[2018-06-09] MEDS: Divalproex 500 mg DR Tab PO SCH ×3 (09:40→21:30)
[2018-06-09] MEDS: Simethicone 80 mg Chewtab PO SCH ×4 (09:40→21:30)
--- NOTE | 2018-06-09 11:34 | PCM.BM ---
<TedKanika - Last Filed: 06/09/18 11:33> Treatment Plan Problems - Problems identified on initial assessmt Substance Abuse Date Initiated: 05/30/18 Time Initiated: 13:00 Assessment reference: NA Status: Active Treatment assets and liabiliti Patient Assests: motivated, self-reliant, ADL independent, physically healthy, negotiates basic needs Patient Liabilities: poor support system, substance abuse - Milieu Protocol Maintain good personal hygiene: daily Encourage regular showers, daily Remind patient to perform daily oral care, daily Assist patient to perform ADL's Maintain personal safety: every shift Educate patient to report safety concerns to staff, every shift Monitor environment for contraband/sharps Medication safety: Monitor for expected outcome, potential side effects: every shift, Assess barriers to learning: every shift, Assess readiness for medication education: every shift Milieu Narrative: SCHIZOAFFECTIVE D/O DEPAKOTE SEROQUEL [place] [facility] SUPPORTIVE PSYCHOTHERAPY ALCOHOL USE DISORDER: [place] CBT COCAINE USE DISORDER: CBT [place] SUPPORTIVE PSYCHOTHERAPY Family Contact Family involvement: Family/SO is involved Family contact: Patient declines to allow family contact at present - Goals for Treatment Patient goals for treatment: "I need a medical doctor for my back pain." Discharge/Continuing Care - Education Needs Education Needs: Patient Medication, Patient Coping Skills, Patient Placement options, Patient Community resources - Discharge Discharge Criteria: Tolerates medication w/o severe side effects, Reduction of target symptoms Discharge to:: [facility] - Treatment Team Participation Patient/Family/SO Statement: SCHIZOAFFECTIVE D/O DEPAKOTE SEROQUEL [place] [facility] SUPPORTIVE PSYCHOTHERAPY ALCOHOL USE DISORDER: [place] C[facility] COCAINE USE DISORDER: CBT [place] SUPPORTIVE PSYCHOTHERAPY Discussed with Family/SO: No Was Patient/Family/SO present at Treatment Team Meeting: Yes Treatment Plan Review - Problem Substance Abuse Time Initiated: 13:00 - Discharge / Continuing Care Discharge to:: [facility] Behavior[facility] Health Services: Partial hospital Health Needs: Medications/Rx, Alcohol/Drug treatment <Robbie Esquivel - Last Filed: 06/09/18 15:17> Treatment Plan Review - Problem Substance Abuse Date Initiated: 06/09/18 Time Initiated: 15:17 Progress toward outcomes: improved
[2018-06-09] MEDS: Naproxen 275 mg Tab PO PRN (15:54)
[2018-06-09 16:01] VITALS: BP 128/82; PULSE 91
[2018-06-09] MEDS: QUEtiapine 200 mg XR Tab PO SCH (21:31)
--- NOTE | 2018-06-09 22:50 | PCM.PYCHPN ---
Psychiatric Progress Note - Psychiatric Progress Note Patient seen today, length of contact: 15 minutes Patient Chief Complaint: I am feeling better.' Problems Identified/Issues Discussed: Patient seen and evaluated, chart reviewed and discussed with the nurse. Pt report improvement in her paranoia and voices. She is not talking to herself anymore. She remained isolated and withdrawn, and confined to her room. Patient is compliant with medications and denies any side effects. Symptoms are improving but pt needs more time to stabilize. Support and psychoeducation given. Medication Change: No Medical Record Reviewed: Yes Mental Status Examination - Cognitive Function Orientation: Person, Place, Situation, Time Memory: Intact Attention: WNL Concentration: WNL Association: WNL Fund of Knowledge: WNL - Mood Mood: Anxious (Much less than before) - Affect Affect: Blunted, Other (APPROPRIATE) - Speech Speech: Appropriate - Formal Thought Process Formal Thought Process: Hallucinations, Delusions, Paranoia, Loosening of associations, Flight of ideas, Other (LESS INTENSE SYMPTOMOLOGY) - Suicidal Ideation Suicidal Ideation: No - Homicidal Ideation Homicidal Ideation: No Goal/Treatment Plan - Goal/Treatment Plan Need for Continued Stay: Remain at risks for inpatient hospitalization, Discharge may exacerbated symptoms, Severe functional impairment Progress Toward Problem(s) and Goals/Treatment Plan: Schizoaffective disorder bipolar type Cocaine use d/o- severe Alcohol use d/o- severe CBT Psychoeducation Supportive therapy As needed medications All risks, benefits and alternatives of the meds discussed, and the pt agreed and understood. Attend groups and activities MA for abstinence Encourage MAT Smoking cessation with MA Nicotine patch if needed Depakote Gabapentin for augmentation if needed Seroquel Estimated Date of D/C: 06/10/18
[2018-06-10] MEDS: Divalproex 500 mg DR Tab PO SCH (09:43)
[2018-06-10] MEDS: Simethicone 80 mg Chewtab PO SCH (09:48)
--- NOTE | 2018-06-10 10:23 | PCM.PYCHDC ---
Mental Status Examination - Mental Status Examination Orientation: Person, Place, Situation, Time Memory: Intact Mood: Neutral Affect: Constricted Attention: WNL Concentration: WNL Association: WNL Fund of Knowledge: WNL Formal Thought Process: No Impairment Description of patient's judgement and insight: good,fair Psychotic Thoughts and Behaviors: denies any AVH Suicidal Ideation: No Current Homicidal Ideation?: No Discharge Summary - Discharge Note Reason for Hospitalization: Patient is a 53-year-old female, single with adult children, who is on disability and homeless. She has been living in a [facility] in [place]. Patient is hard to communicate due to her disorganized thoughts and bizarre behavior. She has a pressured and tangential speech. Patient reports feeling depressed, sad, and miserable since 2009. She states that she gets agitated easily. She denies any current suicidal or homicidal ideation, but she admits attempting suicide by overdosing trazodone and Ativan last year. She admits hearing his boyfriend talking to her and telling her I am mad. She states that she believes his spirit visits her and talks to her. Patient denies being in a detox or heroin program before. She reports that she had multiple hospitalizations in psych unit about 30 times in her life. She denies being diagnosed with a psychiatric disorder stating that I am not schizophrenic or bipolar like other crazy people, I only have behavior problem. Patient was last discharged from [facility] on 05/27/2018. Patient reports using freebase cocaine, about 50 g per month, by smoking with a glass pipe since age 22. She drinks about 6 packs of beer per day for a long time. She smokes 1 ppd. Patient denies any other drug use including benzodiazepines and heroin. She complains about having headache, tremors in her hands, constipation, and feeling cold. She denies nausea, vomiting, stomach pain, numbness or tingling in her extremities. Consultations:: List each consultation separately and include: 1. Reason for request. 2. Findings. 3. Follow-up Summary of Hospital Course include:: 1. Description of specific treatment plan utilized for patients during their course of treatmen. 2. Summarize the time- course for resolution of acute symptoms and/or regressed behaviors. 3. Describe issues identified and worked on during hospitalization. 4. Describe medication utilized. 5. Describe medical problems identified and treated. 6. Reassessment of suicide risk Summary of Hospital Course: During the course of her stay, patient (pt) started progressively improving and no longer remained irritable, disorganized and paranoid. Her mood and anxiety were improved and she started attending groups and meetings and started socializing. Patient denied any feelings of hopelessness, helplessness, and worthlessness, denied any problem with the sleep or appetite, denied suicidal ideation or homicidal ideation. Pt denied any auditory or visual hallucinations. She denied any withdrawal symptoms. Pt was treated with medications along with supportive therapy, milieu therapy and group therapy. Some changes were made in her current medications and patient was discharged on following medications. She tolerated these medications very we ll and denied any side effects. - Final Diagnosis (DSM 5) Condition upon Discharge: GOOD DSM 5: Schizoaffective disorder bipolar type Cocaine use d/o- severe Alcohol use d/o- severe Disposition: HOME/ ROUTINE Follow-up Treatment Plan: Followup: She was discharged to the [facility] program in [place], to follow-up with after care. Education: Pt was educated and counseled about the risks and benefits of taking and not taking medications. Pt was educated and counseled about the risks of drinking and abusing drugs. Pt was educated and counseled to go to the ER or call 911 if pt develop suicidal ideation or homicidal ideation, worsening of symptoms or severe side effects of the meds. Prescriptions/Medication Reconciliation: Divalproex [Depakote DR] 500 mg PO HS #30 tcp Divalproex [Depakote DR] 500 mg PO BID #60 tcp fluPHENAZine [Prolixin] 10 mg PO BID #60 tab QUEtiapine [Seroquel] 100 mg PO DAILY #30 tab QUEtiapine [Seroquel XR] 200 mg PO HS #60 ter - Smoking Cessation Smoking Cessation Medication prescribed: No - Antipsychotic Medications Pt discharged on 2 or more routine antipsychotic medications: No
--- NOTE | 2018-06-10 11:22 | CP.PCM.PN ---
<Bola Monique - Last Filed: 06/10/18 16:34> Subjective - Date & Time of Evaluation Date of Evaluation: 06/10/18 Time of Evaluation: 11:21 - Subjective Subjective: Bola Monique PGY-1, Medicine progress note Pt seen and examined at bedside. No acute events overnight. Pt has no complaints at this time. Pt denies fever, chills, cp, cob, abdominal pain, n/v/d. Objective - Vital Signs/Intake and Output Vital Signs (last 24 hours): Temp Pulse Resp BP Pulse Ox 97.5 F L 91 H 20 128/82 99 06/07/18 11:01 06/09/18 16:01 06/07/18 11:01 06/09/18 16:01 05/30/18 15:15 - Medications Medications: Current Medications Acetaminophen (Tylenol 325mg Tab) 650 mg PO Q6 PRN PRN Reason: Pain, Mild (1-3) Last Admin: 06/06/18 23:25 Dose: 650 mg Albuterol (Ventolin Hfa 90 Mcg/Actuation (8 G)) 1 puff INH RQ4 PRN PRN Reason: SOB Last Admin: 06/02/18 01:20 Dose: 1 puff Apixaban (Eliquis) 5 mg PO BID [facility] Last Admin: 06/10/18 09:43 Dose: 5 mg Benztropine Mesylate (Cogentin) 1 mg PO BID [facility] Last Admin: 06/10/18 09:43 Dose: 1 mg Divalproex Sodium (Depakote Dr) 500 mg PO BID [facility] Last Admin: 06/10/18 09:43 Dose: 500 mg Divalproex Sodium (Depakote Dr) 500 mg PO HS [facility] Last Admin: 06/09/18 21:30 Dose: 500 mg Docusate Sodium (Colace) 100 mg PO DAILY [facility] Last Admin: 06/10/18 09:43 Dose: 100 mg Fluphenazine HCl (Prolixin) 10 mg PO BID [facility] Last Admin: 06/10/18 09:43 Dose: 10 mg Gabapentin (Neurontin) 300 mg PO BID [facility] Last Admin: 06/10/18 09:43 Dose: 300 mg Haloperidol (Haldol) 5 mg PO Q4H PRN PRN Reason: Agitation Last Admin: 06/10/18 09:43 Dose: 5 mg Hydroxyzine HCl (Atarax) 50 mg PO Q6H PRN PRN Reason: Anxiety Last Admin: 06/09/18 17:02 Dose: 50 mg Nicotine (Nicoderm Cq) 1 patch TD DAILY [facility] Last Admin: 06/10/18 09:48 Dose: Not Given Quetiapine Fumarate (Seroquel) 100 mg PO BID [facility] Last Admin: 06/10/18 09:43 Dose: 100 mg Quetiapine Fumarate (Seroquel Xr) 400 mg PO HS [facility] Last Admin: 06/09/18 21:31 Dose: 400 mg Simethicone (Mylicon Chew Tab) 80 mg PO QID [facility] Last Admin: 06/10/18 09:48 Dose: Not Given - Labs Labs: 06/07/18 19:40 06/07/18 19:40 PT 12.2 SECONDS (9.7-12.2) 06/08/18 14:22 INR 1.1 06/08/18 14:22 - Constitutional Appears: Non-toxic, No Acute Distress - Head Exam Head Exam: ATRAUMATIC, NORMAL INSPECTION - Eye Exam Eye Exam: EOMI, Normal appearance - ENT Exam ENT Exam: Mucous Membranes Moist - Respiratory Exam Respiratory Exam: Clear to Ausculation Bilateral, NORMAL BREATHING PATTERN. absent: Rales, Rhonchi, Wheezes - Cardiovascular Exam Cardiovascular Exam: REGULAR RHYTHM, +S1, +S2 - GI/Abdominal Exam GI & Abdominal Exam: Soft, Normal Bowel Sounds. absent: Distended, Firm, Guarding, Tenderness - Extremities Exam Extremities Exam: absent: Calf Tenderness, Pedal Edema, Tenderness Additional comments: (+) left lower extremity is swollen, from the knee down, when compared to right lower extremity - Back Exam Back Exam: NORMAL INSPECTION - Neurological Exam Neurological Exam: Alert, Awake - Psychiatric Exam Psychiatric exam: Normal Affect, Normal Mood - Skin Skin Exam: Dry, Warm Additional comments: chronic venous stasis changes bilaterally Assessment and Plan - Assessment and Plan (Free Text) Assessment: 53 year old female with a past medical history od schizophrenia, depression, esbl uti, copd, right lower extremity dvt, sickle cell train, dm2 who was consulted by medicine for left lower extremity pain for 3 days. Plan: Left lower extremity pain -Patient has history of DVT in Right leg s/p IVC filter placement. Patient was taking Xarelto up until about a month and a half ago. Patient reports her medicine being [place] light rail. 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 No evidence of deep or superficial vein thrombosis of the right lower extremity. Valvular incompetence of the right popliteal vein. -Left knee xray ordered :Negative -Left hip xray ordered :Negative CRP: 2.1, normal -Continue Eliquis 5 mg PO BID Hx Schizophrenia -Management per Psychiartry -Prolixin 10mg PO BID Hx Depression -Managment per Psychiatry COPD -Ventolin 1 puff INH RQ4 PRN Tobacco abuse -Nicotine patch 21mg Daily Constipation/gas -Colace 100 MG PO Daily -Simethacone 80mg PO QID Dispo: We will sign off from a medical standpoint. Please reconsult if needed. Pt instructed to continue Eliquis 5 mg PO BID as treatment for DVT. Pharmacy filled pt's prescription downstairs, and pt will obtain medications on discharge from [facility]. Case discussed with attending physician, Dr. Adeel Graham <Trav Graham - Last Filed: 06/10/18 19:43> Objective - Vital Signs/Intake and Output Vital Signs (last 24 hours): Temp Pulse Resp BP Pulse Ox 97.5 F L 91 H 20 128/82 99 06/07/18 11:01 06/09/18 16:01 06/07/18 11:01 06/09/18 16:01 05/30/18 15:15 - Labs Labs: 06/07/18 19:40 06/07/18 19:40 PT 12.2 SECONDS (9.7-12.2) 06/08/18 14:22 INR 1.1 06/08/18 14:22 Attending/Attestation - Attestation I have personally seen and examined this patient.: No I have fully participated in the care of the patient.: Yes I have reviewed all pertinent clinical information, including history, physical exam and plan: Yes Notes (Text): 06/10/18 19:41 Please note that this patient was not able to be seen by me as she was discharged prior to me being able to get to [facility]. However her care was discussed with the resident at length in the morning. I also confirmed with the Psychiatry Nurse caring for the patient that the patient did receive her Eliquis prescription. Trav Graham D.O.
--- NOTE | 2018-06-10 12:41 | VASCLAB ---
Date of service: 06/09/2018 PROCEDURE: Lower Extremity Venous Duplex Exam. HISTORY: swollen leg, prior hx of dvt PRIORS: None. TECHNIQUE: Bilateral common femoral, femoral, popliteal and posterior tibial, peroneal and great saphenous veins were evaluated. Flow was assessed with color Doppler, compressibility, assessment of phasic flow and augmentation response. Report prepared by Darren Arnold, GENARO, RVT FINDINGS: RIGHT: 1. Common Femoral Vein: 1.1. Compressibility - Fully compressible: Thrombus - None : Flow - Phasic: Augmentation -Normal: Reflux - None. 2. Femoral Vein: 2.1. Compressibility - Fully compressible: Thrombus - None : Flow - Phasic: Augmentation -Normal: Reflux - None. 3. Popliteal Vein: 3.1. Compressibility - Fully compressible: Thrombus - None : Flow - Phasic: Augmentation -Normal: Reflux - YES. 4. Posterior Tibial Vein: 4.1. Compressibility - Fully compressible: Thrombus - None: Flow - Phasic: Augmentation -Normal: Reflux - None. 5. Peroneal Vein: 5.1. Compressibility - Fully compressible: Thrombus - None: Flow - Phasic: Augmentation -Normal: Reflux - None. 6. Great Saphenous Vein: 6.1. Compressibility - Fully compressible: Thrombus - None: Flow - Phasic: Augmentation - Normal: Reflux - None. LEFT: 1. Common Femoral Vein: 1.1. Compressibility - Fully compressible: Thrombus - None: Flow - Phasic: Augmentation -Normal: Reflux - None. 2. Femoral Vein: 2.1. Compressibility - Partial: Thrombus - Chronic: Flow - Reduced : Augmentation -Reduced: Reflux - YES. 3. Popliteal Vein: 3.1. Compressibility - Incompressible: Thrombus - Chronic : Flow - Reduced : Augmentation -Reduced: Reflux - None. 4. Posterior Tibial Vein: 4.1. Compressibility - Fully compressible: Thrombus - None: Flow - Phasic: Augmentation -Normal: Reflux - None. 5. Peroneal Vein: 5.1. Compressibility - Fully compressible: Thrombus - None: Flow - Phasic: Augmentation -Normal: Reflux - None. 6. Great Saphenous Vein: 6.1. Compressibility - Fully compressible: Thrombus - None: Flow - Phasic: Augmentation - Normal: Reflux - None. OTHER FINDINGS: MARU Dickerson notified about the findings. Impression Right: No evidence of deep or superficial vein thrombosis of the right lower extremity. Valvular incompetence of the right popliteal vein. 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
== END 2018-06-10 11:42 | disposition home or self-care (01) | DRG 430 ==
LOC: C.ER 12:17 → C.9E 12:29 → C.5E 12:53
PROVIDERS: ADMIT Psychiatry & Neurology Psychiatry; ATTEND Psychiatry & Neurology Psychiatry
PROC: GZ3ZZZZ Medication Management (ICD-10-PCS; principal; 2018-05-30)
PROC: HZ89ZZZ Medication Management for Substance Abuse Treatment, Other Replacement Medication (ICD-10-PCS; 2018-05-30)
PROC: HZ80ZZZ Medication Management for Substance Abuse Treatment, Nicotine Replacement (ICD-10-PCS; 2018-05-30)
PROC: GZHZZZZ Group Psychotherapy (ICD-10-PCS; 2018-05-30)
PROC: GZ56ZZZ Individual Psychotherapy, Supportive (ICD-10-PCS; 2018-05-30)
DX: F25.0 Schizoaffective disorder, bipolar type (principal); I82.512 Chronic embolism and thrombosis of left femoral vein; F14.10 Cocaine abuse, uncomplicated; I82.532 Chronic embolism and thrombosis of left popliteal vein; D57.1 Sickle-cell disease without crisis; J43.9 Emphysema, unspecified; F10.10 Alcohol abuse, uncomplicated; F17.210 Nicotine dependence, cigarettes, uncomplicated; E11.9 Type 2 diabetes mellitus without complications; F60.9 Personality disorder, unspecified; F41.9 Anxiety disorder, unspecified; Z91.5 Personal history of self-harm; K21.9 Gastro-esophageal reflux disease without esophagitis; K59.00 Constipation, unspecified; R25.1 Tremor, unspecified; R51 Headache; Z59.0 Homelessness; Z87.01 Personal history of pneumonia (recurrent); Z79.84 Long term (current) use of oral hypoglycemic drugs; Z81.8 Family history of other mental and behavioral disorders

== ENCOUNTER 2018-06-30 23:29 | Emergency (ER) | payer MEDICAID ==
[2018-06-30 23:30] VITALS: BMI 30.2
--- NOTE | 2018-06-30 23:55 | C.PDOC ---
Addendum entered and electronically signed by Candis Maradiaga MD 07/01/18 15:43: Progress Note - Review of Symptoms Events since last encounter: PER CRISIS, S/P [facility] [place] SCREENER CHAU WHO STATES PT IS AT BASELINE MS AND REFUSES TO SIGN IN. CLEARED FOR OUTPT DC Disposition Counseled Patient/Family Regarding: Studies Performed, Diagnosis Clinical Impression: Schizoaffective disorder Disposition: HOME/ ROUTINE Disposition Time: 15:42 Condition: IMPROVED Instructions: Schizoaffective Disorder (DC) Referrals: [facility] [Provider Group] Stand Alone Forms: [facility] (Spanish) Addendum entered and electronically signed by Candis Maradiaga MD 07/01/18 13:25: Progress Note - Review of Symptoms Events since last encounter: D/W CRISIS, STILL UNK ARRIVAL TIME FOR [facility] [place] SCREEN. PER SIGN OUT FROM DR ALFONSO, S/P [facility] @ [id number] DUE TO PT AGITATION. CALM SEDATED NARD. Original Note: History Of Present Illness Patient presents to the ER stating she is hearing voices. Patient is also known to be homeless. Denies any physical complaints at this time. Time Seen by Provider: 06/30/18 23:51 Chief Complaint (Nursing): Psychiatric Evaluation History Per: Patient History/Exam Limitations: no limitations Onset/Duration Of Symptoms: Hrs Current Symptoms Are (Timing): Still Present Suicide/Self Injury Attempted (Context): None Modifying Factor(s): None Severity: None Pain Scale Rating Of: 0 Associated Symptoms: Other (Hearing voices) Involuntary Hold By: None Recent travel outside of the [place]: No Past Medical History Reviewed: Historical Data, Nursing Documentation, Vital Signs Vital Signs: Last Vital Signs Temp 97.5 F L 06/30/18 23:38 Pulse 70 06/30/18 23:38 Resp 14 06/30/18 23:38 BP 130/80 06/30/18 23:38 Pulse Ox 97 06/30/18 23:38 - Medical History PMH: Anemia, Anxiety, Asthma, Bipolar Disorder, Bronchitis, Depression, Deep Vein Thrombosis, Emphysema, Personality Disorder, Pneumonia, Schizophrenia, Sickle Cell Disease, Sexually Transmitted Disease Denies: Diabetes, Hepatitis, HIV, HTN, Chronic Kidney Disease, Seizures - [facility] Procedures ALCOHOL DETOXIFICATION (04/19/13) EXCISION OF LEFT FOOT SKIN, EXTERNAL APPROACH (05/05/18) EXCISION OF RIGHT FOOT SKIN, EXTERNAL APPROACH (05/05/18) EXCISION OF TOE NAIL, EXTERNAL APPROACH (05/05/18) GROUP PSYCHOTHERAPY (05/30/18) INDIVID PSYCHOTHERAP NEC (07/24/13) INDIVIDUAL PSYCHOTHERAPY, SUPPORTIVE (05/30/18) INSERTION OF INTRALUM DEV INTO INF VENA CAVA, PERC APPROACH (05/24/16) MEDICATION MANAGEMENT (05/30/18) MEDS MGMT FOR SUBSTANCE ABUSE TREATMENT, NICOTINE REPLACE (05/30/18) MEDS MGMT FOR SUBSTANCE ABUSE TREATMENT, OTH REPL MED (05/30/18) OTHER GROUP THERAPY (07/24/13) PSYCHIA INTERV/EVAL NEC (01/02/14) PSYCHIAT DRUG THERAP NEC (04/30/15) SUPPOR VERBAL PSYCHOTHER (05/25/13) Family History: States: No Known Family Hx - Social History Hx Tobacco Use: Yes Hx Alcohol Use: No Hx Substance Use: Yes - Immunization History Hx Tetanus Toxoid Vaccination: No Hx Influenza Vaccination: No Hx Pneumococcal Vaccination: No Review Of Systems Constitutional: Negative for: Fever, Chills Cardiovascular: Negative for: Chest Pain, Palpitations Respiratory: Negative for: Cough, Shortness of Breath Gastrointestinal: Negative for: Nausea, Vomiting Psych: Positive for: Other (Hearing voices) Physical Exam - Physical Exam Appears: Non-toxic Skin: Warm, Dry Head: Normacephalic Oral Mucosa: Moist Chest: Symmetrical, No Tenderness Cardiovascular: Rhythm Regular Respiratory: No Rales, No Rhonchi, No Wheezing Gastrointestinal/Abdominal: Soft, No Tenderness Neurological/Psych: Oriented x3 ED Course And Treatment - Laboratory Results Result Diagrams: 07/01/18 01:03 07/01/18 01:03 ECG: Interpreted By Me, Viewed By Me ECG Rhythm: Sinus Rhythm (87), Nonspecific Changes O2 Sat by Pulse Oximetry: 97 (Room air) Pulse Ox Interpretation: Normal Progress Note: Blood work and urinalysis ordered. Crisis notified. cxr done on 05/18 negative. pt is medically cleared for screenrs Disposition Counseled Patient/Family Regarding: Studies Performed, Diagnosis - Disposition Disposition Time: 23:51 Condition: FAIR Forms: [facility] (Spanish) - Clinical Impression Clinical Impression: Schizophrenia - Scribe Statement The provider has reviewed the documentation as recorded by the Scribamber Flores All medical record entries made by the Scribe were at my direction and personally dictated by me. I have reviewed the chart and agree that the record accurately reflects my personal performance of the history, physical exam, medical decision making, and the department course for this patient. I have also personally directed, reviewed, and agree with the discharge instructions and disposition. Physician Patient Turnover Patient Signed Over To: Brittany Alfonso Handoff Comments: pending [facility] screener and disposition
[2018-07-01 00:56] LABS: URINE BILIRUBIN NEGATIVE (NEGATIVE); URINE BLOOD NEGATIVE (NEGATIVE); URINE CLARITY Clear (Clear); URINE COLOR Straw (YELLOW); URINE GLUCOSE (UA) NORMAL (Normal); URINE LEUKOCYTE ESTERASE NEG Leu/uL (Negative); URINE PROTEIN NEGATIVE (NEGATIVE); URINE UROBILINOGEN NORMAL mg/dL (0.2-1.0)
[2018-07-01 00:57] LABS: HCG,QUALITATIVE URINE NEGATIVE (NEGATIVE)
[2018-07-01 01:13] LABS: BARBITURATES, UR NEGATIVE (NEGATIVE); BENZODIAZEPINES, UR NEGATIVE (NEGATIVE); OPIATES, UR NEGATIVE (NEGATIVE); PHENCYCLIDINE, UR NEGATIVE (NEGATIVE)
[2018-07-01 01:16] LABS: BASO % 0.8 % (0.0-2.0); EOS # 0.2 K/uL (0.0-0.7); EOS % 3.9 % (0.0-4.0); HEMOGLOBIN 13.5 g/dL (11.0-16.0); LYMPH # 2.2 K/uL (1.0-4.3); LYMPH % 43.1 % (20.0-40.0); MEAN CELL VOLUME 88.7 fL (81.0-99.0); MEAN CORPUSCULAR HEMOGLOBIN 29.7 pg (27.0-31.0); MEAN CORPUSCULAR HGB CONC 33.5 g/dL (33.0-37.0); MONO # 0.5 K/uL (0.0-0.8); MONO % 10.7 % (0.0-10.0); NEUT # 2.1 K/uL (1.8-7.0); NEUT % 41.5 % (50.0-75.0); NRBC % 0.1 % (0.0-2.0); RBC 4.54 Mil/uL (3.80-5.20); RED CELL DISTRIBUTION WIDTH 16.7 % (11.5-14.5); WHITE BLOOD COUNT 5.1 K/uL (4.8-10.8)
[2018-07-01 01:27] LABS: BLOOD UREA NITROGEN 18 mg/dL (7-17); CALCIUM 9.8 mg/dl (8.6-10.4); GFR NON-AFRICAN AMERICAN > 60
[2018-07-01 01:28] LABS: ALB/GLOB RATIO 1.4 (1.0-2.1); ALBUMIN 4.6 g/dL (3.5-5.0); ALT/SGPT 30 U/L (9-52); AST/SGOT 31 U/L (14-36)
[2018-07-01 15:57] VITALS: BP 124/82; PULSE 101; RESP 18; TEMP 98; O2SAT 97
--- NOTE | 2018-07-02 19:53 | CARD ---
APPROVED REPORT Date of service: 07/01/2018 EKG Measurement Heart [id number] MO [id number] <Conclusion> Normal sinus rhythm Normal ECG
== END 2018-07-01 15:58 | disposition home or self-care (01) ==
LOC: C.ER 23:29
DX: F25.9 Schizoaffective disorder, unspecified (principal); F31.9 Bipolar disorder, unspecified; F41.9 Anxiety disorder, unspecified; D57.1 Sickle-cell disease without crisis; Z59.0 Homelessness
CPT/HCPCS: 36415; 80053; 80320; 80324; 80345; 80346; 80349; 80353; 80358; 80361; 81001; 82948; 83735; 83992; 84100; 84702; 84703; 85025; 93005; 96372; 99285; J1630

== ENCOUNTER 2018-07-04 02:58 | Emergency (ER) | payer MEDICAID ==
[2018-07-04 02:58] VITALS: BMI 30.2
[2018-07-04 03:13] VITALS: BP 128/84; PULSE 90; RESP 20; TEMP 98.9; O2SAT 96
--- NOTE | 2018-07-04 03:23 | C.PDOC ---
History Of Present Illness 53 year old female presents to the ER with bizarre behavior and no specific complaint. Patient is ranting and argumentative with staff, many prior visits for same. Time Seen by Provider: 07/04/18 03:18 Chief Complaint (Nursing): Medical Clearance History Per: Patient History/Exam Limitations: no limitations Onset/Duration Of Symptoms: Hrs Recent travel outside of the [place]: No Past Medical History Reviewed: Historical Data, Nursing Documentation, Vital Signs Vital Signs: Last Vital Signs Temp 98.9 F 07/04/18 03:05 Pulse 90 07/04/18 03:05 Resp 20 07/04/18 03:05 BP 128/84 07/04/18 03:05 Pulse Ox 96 07/04/18 03:05 - Medical History PMH: Anemia, Anxiety, Asthma, Bipolar Disorder, Bronchitis, Depression, Deep Vein Thrombosis, Emphysema, Personality Disorder, Pneumonia, Schizophrenia, Sickle Cell Disease, Sexually Transmitted Disease Denies: Diabetes, Hepatitis, HIV, HTN, Chronic Kidney Disease, Seizures - [facility] Procedures ALCOHOL DETOXIFICATION (04/19/13) EXCISION OF LEFT FOOT SKIN, EXTERNAL APPROACH (05/05/18) EXCISION OF RIGHT FOOT SKIN, EXTERNAL APPROACH (05/05/18) EXCISION OF TOE NAIL, EXTERNAL APPROACH (05/05/18) GROUP PSYCHOTHERAPY (05/30/18) INDIVID PSYCHOTHERAP NEC (07/24/13) INDIVIDUAL PSYCHOTHERAPY, SUPPORTIVE (05/30/18) INSERTION OF INTRALUM DEV INTO INF VENA CAVA, PERC APPROACH (05/24/16) MEDICATION MANAGEMENT (05/30/18) MEDS MGMT FOR SUBSTANCE ABUSE TREATMENT, NICOTINE REPLACE (05/30/18) MEDS MGMT FOR SUBSTANCE ABUSE TREATMENT, OTH REPL MED (05/30/18) OTHER GROUP THERAPY (07/24/13) PSYCHIA INTERV/EVAL NEC (01/02/14) PSYCHIAT DRUG THERAP NEC (04/30/15) SUPPOR VERBAL PSYCHOTHER (05/25/13) Family History: States: Unknown Family Hx - Social History Hx Tobacco Use: Yes Hx Alcohol Use: No Hx Substance Use: Yes - Immunization History Hx Tetanus Toxoid Vaccination: No Hx Influenza Vaccination: No Hx Pneumococcal Vaccination: No Review Of Systems Constitutional: Negative for: Fever, Chills Cardiovascular: Negative for: Chest Pain, Palpitations Respiratory: Negative for: Cough, Shortness of Breath Gastrointestinal: Negative for: Nausea, Vomiting Neurological: Negative for: Weakness, Numbness Physical Exam - Physical Exam Appears: Non-toxic Skin: Normal Color, Warm, Dry Head: Atraumatic, Normacephalic Eye(s): bilateral: Normal Inspection Oral Mucosa: Moist Chest: Symmetrical, No Tenderness Cardiovascular: Rhythm Regular Respiratory: Normal Breath Sounds, No Rales, No Rhonchi, No Wheezing Gastrointestinal/Abdominal: Soft, No Tenderness Neurological/Psych: Oriented x3, Normal Speech Gait: Steady ED Course And Treatment O2 Sat by Pulse Oximetry: 96 (Room air) Pulse Ox Interpretation: Normal Medical Decision Making Medical Decision Making: baseline psych no acute issues argumentative and confrontational with staff, per usual wants to be d/c now Disposition Doctor Will See Patient In The: Office Counseled Patient/Family Regarding: Studies Performed, Diagnosis - Disposition Referrals: [email or web address] [Outside] [facility] [Outside] [facility] [Outside] [facility] [Outside] [facility] [Outside] Disposition: HOME/ ROUTINE Disposition Time: 03:23 Condition: GOOD Additional Instructions: seek outpatient resources for your psychiatric issues Instructions: Schizophrenia (DC) Forms: [email or web address] (Spanish) - Clinical Impression Clinical Impression: Schizophrenia - Scribe Statement The provider has reviewed the documentation as recorded by the Scribamber Flores All medical record entries made by the Scribe were at my direction and personally dictated by me. I have reviewed the chart and agree that the record accurately reflects my personal performance of the history, physical exam, medical decision making, and the department course for this patient. I have also personally directed, reviewed, and agree with the discharge instructions and disposition.
== END 2018-07-04 03:30 | disposition home or self-care (01) ==
LOC: C.ER 02:58
DX: F20.9 Schizophrenia, unspecified (principal)

== ENCOUNTER 2018-12-01 14:36 | Inpatient (IN) | payer MEDICAID ==
[2018-12-01 14:37] VITALS: BMI 29.2
--- NOTE | 2018-12-01 18:25 | C.PDOC ---
History Of Present Illness 53 y/o female with psychiatric problems, well known to crisis staff, hx dvt right leg, on eliquis, presents to ED saying she is depressed, homicidal and suicidal. pt also has multiple medical complaints such as problems with uterus (with plans for surgery). pt reports a recent cough, and now complains about abdominal cramps and headache. <Lori Petersen - Last Filed: 12/01/18 19:08> History Per: Patient History/Exam Limitations: no limitations Onset/Duration Of Symptoms: Days Current Symptoms Are (Timing): Still Present Severity: Moderate <Lori Petersen - Last Filed: 12/01/18 19:08> <Ann Doss - Last Filed: 12/01/18 21:03> Time Seen by Provider: 12/01/18 16:33 Chief Complaint (Nursing): Psychiatric Evaluation Past Medical History Reviewed: Historical Data, Nursing Documentation, Vital Signs Vital Signs: Last Vital Signs Temp 100.9 F H 12/01/18 15:09 Pulse 113 H 12/01/18 15:09 Resp 18 12/01/18 15:09 BP 117/83 12/01/18 15:09 Pulse Ox 96 12/01/18 15:09 - Medical History PMH: Anemia, Anxiety, Arthritis, Asthma, Bipolar Disorder, Bronchitis, Dep ression, Deep Vein Thrombosis, Emphysema, Personality Disorder, Pneumonia, Schizophrenia, Sickle Cell Disease Denies: Diabetes, Hepatitis, HIV, HTN, Chronic Kidney Disease, Seizures, Sexually Transmitted Disease Other Surgeries: Hx of surgeries - [facility] Procedures ALCOHOL DETOXIFICATION (04/19/13) EXCISION OF LEFT FOOT SKIN, EXTERNAL APPROACH (05/05/18) EXCISION OF RIGHT FOOT SKIN, EXTERNAL APPROACH (05/05/18) EXCISION OF TOE NAIL, EXTERNAL APPROACH (05/05/18) GROUP PSYCHOTHERAPY (05/30/18) INDIVID PSYCHOTHERAP NEC (07/24/13) INDIVIDUAL PSYCHOTHERAPY, SUPPORTIVE (05/30/18) INSERTION OF INTRALUM DEV INTO INF VENA CAVA, PERC APPROACH (05/24/16) MEDICATION MANAGEMENT (05/30/18) MEDS MGMT FOR SUBSTANCE ABUSE TREATMENT, NICOTINE REPLACE (05/30/18) MEDS MGMT FOR SUBSTANCE ABUSE TREATMENT, OTH REPL MED (05/30/18) OTHER GROUP THERAPY (07/24/13) PSYCHIA INTERV/EVAL NEC (01/02/14) PSYCHIAT DRUG THERAP NEC (04/30/15) SUPPOR VERBAL PSYCHOTHER (05/25/13) Family History: States: No Known Family Hx - Social History Hx Tobacco Use: Yes Hx Alcohol Use: No Hx Substance Use: Yes - Immunization History Hx Tetanus Toxoid Vaccination: No Hx Influenza Vaccination: No Hx Pneumococcal Vaccination: No <Lori Petersen - Last Filed: 12/01/18 19:08> Vital Signs: Last Vital Signs Temp 97.6 F 12/01/18 20:36 Pulse 97 H 12/01/18 18:16 Resp 20 12/01/18 20:36 BP 126/59 L 12/01/18 20:36 Pulse Ox 93 L 12/01/18 20:36 - [facility] Procedures ALCOHOL DETOXIFICATION (04/19/13) EXCISION OF LEFT FOOT SKIN, EXTERNAL APPROACH (05/05/18) EXCISION OF RIGHT FOOT SKIN, EXTERNAL APPROACH (05/05/18) EXCISION OF TOE NAIL, EXTERNAL APPROACH (05/05/18) GROUP PSYCHOTHERAPY (05/30/18) INDIVID PSYCHOTHERAP NEC (07/24/13) INDIVIDUAL PSYCHOTHERAPY, SUPPORTIVE (05/30/18) INSERTION OF INTRALUM DEV INTO INF VENA CAVA, PERC APPROACH (05/24/16) MEDICATION MANAGEMENT (05/30/18) MEDS MGMT FOR SUBSTANCE ABUSE TREATMENT, NICOTINE REPLACE (05/30/18) MEDS MGMT FOR SUBSTANCE ABUSE TREATMENT, OTH REPL MED (05/30/18) OTHER GROUP THERAPY (07/24/13) PSYCHIA INTERV/EVAL NEC (01/02/14) PSYCHIAT DRUG THERAP NEC (04/30/15) SUPPOR VERBAL PSYCHOTHER (05/25/13) <Ann Doss - Last Filed: 12/01/18 21:03> Review Of Systems Constitutional: Negative for: Fever, Chills Gastrointestinal: Positive for: Abdominal Pain. Negative for: Nausea, Vomiting, Diarrhea Musculoskeletal: Positive for: Leg Pain (left leg pain) Neurological: Positive for: Headache <Lori Petersen - Last Filed: 12/01/18 19:08> Physical Exam - Physical Exam Appears: Non-toxic, No Acute Distress Skin: Warm, Dry, Other (mild warrmness to touch to left leg, darkened skin to bilateral legs, multiple varicose veins to bilateral legs, old scab to left knee) Head: Atraumatic, Normacephalic Cardiovascular: Rhythm Regular Respiratory: Normal Breath Sounds, No Rales, No Rhonchi, No Wheezing Gastrointestinal/Abdominal: Bowel Sounds, Soft, No Tenderness, No Guarding, No Rebound Extremity: Normal ROM, No Tenderness, Other (left leg skin darkened, mild warmth. mild swelling to knee with from. non tender. right leg with mild warmth, non then baudilio no swelling. ) Pulses: Left Dorsalis Pedis: Normal, Right Dorsalis Pedis: Normal Neurological/Psych: Oriented x3, Normal Speech <Lori Petersen - Last Filed: 12/01/18 19:08> ED Course And Treatment O2 Sat by Pulse Oximetry: 96 (RA) Pulse Ox Interpretation: Normal <Lori Petersen - Last Filed: 12/01/18 19:08> - Laboratory Results Result Diagrams: 12/01/18 19:17 12/01/18 19:17 Lab Results: Total Bilirubin 0.2 mg/dL (0.2-1.3) 12/01/18 19:17 AST 19 U/L (14-36) 12/01/18 19:17 ALT 13 U/L (9-52) 12/01/18 19:17 Alkaline Phosphatase 58 U/L (38-126) 12/01/18 19:17 Total Protein 7.2 g/dL (6.3-8.3) 12/01/18 19:17 Albumin 4.2 g/dL (3.5-5.0) 12/01/18 19:17 Globulin 2.9 gm/dL (2.2-3.9) 12/01/18 19:17 Albumin/Globulin Ratio 1.4 (1.0-2.1) 12/01/18 19:17 Urine Color Straw (YELLOW) 12/01/18 18:47 Urine Clarity Clear (Clear) 12/01/18 18:47 Urine pH 7.0 (5.0-8.0) 12/01/18 18:47 Ur Specific [place] 1.004 (1.003-1.030) 12/01/18 18:47 Urine Protein Negative mg/dL (NEGATIVE) 12/01/18 18:47 Urine Glucose (UA) Normal mg/dL (Normal) 12/01/18 18:47 Urine Ketones Negative mg/dL (NEGATIVE) 12/01/18 18:47 Urine Blood Negative (NEGATIVE) 12/01/18 18:47 Urine Nitrate Negative (NEGATIVE) 12/01/18 18:47 Urine Bilirubin Negative (NEGATIVE) 12/01/18 18:47 Urine Urobilinogen Normal mg/dL (0.2-1.0) 12/01/18 18:47 Ur Leukocyte Esterase Neg Erik/uL (Negative) 12/01/18 18:47 Urine WBC (Auto) < 1 /hpf (0-5) 12/01/18 18:47 Urine RBC (Auto) < 1 /hpf (0-3) 12/01/18 18:47 Ur Squamous Epith Cells < 1 /hpf (0-5) 12/01/18 18:47 Urine Bacteria Rare (<OCC) 12/01/18 18:47 Urine HCG, Qual Negative (NEGATIVE) 12/01/18 18:47 Urine HCG, Qual Negative (NEGATIVE) 12/01/18 18:47 <Ann Doss - Last Filed: 12/01/18 21:03> Medical Decision Making Medical Decision Making: pt with posych and med complaitns. ,ost med complaints chronic, will get labs and ua. cxr due to possible fever. s/o to Dr Ann to f/u <Lori Petersen - Last Filed: 12/01/18 19:08> Disposition - Disposition Disposition Time: 19:06 <Lori Petersen - Last Filed: 12/01/18 19:08> Discussed With : Luis Eduardo Muñiz Comment: accepted the pt on his service and took over the care at 9:02PM Doctor Will See Patient In The: Hospital Counseled Patient/Family Regarding: Studies Performed, Diagnosis - POA Present On Arrival: None <Ann Doss - Last Filed: 12/01/18 21:03> - Disposition Disposition: HOSPITALIZED Condition: FAIR Forms: [facility] (Jordanian) - Clinical Impression Clinical Impression: Schizoaffective disorder - PA / [employer] WORK[employer] / Resident Statement MD/DO has reviewed & agrees with the documentation as recorded. - Scribe Statement The provider has reviewed the documentation as recorded by the Lorraineibamber Araujo Provider Attestation All medical record entries made by the Scribe were at my direction and personally dictated by me. I have reviewed the chart and agree that the record accurately reflects my personal performance of the history, physical exam, medical decision making, and the department course for this patient. I have also personally directed, reviewed, and agree with the discharge instructions and disposition. <Lori Petersen - Last Filed: 12/01/18 19:08> Physician Patient Turnover Patient Signed Over To: Ann Doss Handoff Comments: f/u labs, cxr. ua. crisis eval and dispo <Lori Petersen - Last Filed: 12/01/18 19:08> Decision To Admit <Lori Petersen - Last Filed: 12/01/18 19:08> - Pt Status Changed To: Hospital Disposition Of: Inpatient - Admit Certification Admit to Inpatient:: After my assessment, the patient will require hospitalization for at least two midnights. This is because of the severity of symptoms shown, intensity of services needed, and/or the medical risk in this patient being treated as an outpatient. - InPatient: Physician Admission Certification: I certify that this patient requires 2 or more midnights of care for the following reason:: After my assessment, the patient will require hospitalization for at least two midnights. This is because of the severity of symptoms shown, intensity of services needed, and/or the medical risk in this patient being treated as an outpatient. - . Bed Request Type: Psychiatry Admitting Physician: Luis Eduardo Muñiz <Ann Doss - Last Filed: 12/01/18 21:03> - . Patient Diagnosis: Schizoaffective disorder
[2018-12-01 19:09] LABS: BARBITURATES, UR NEGATIVE (NEGATIVE); BENZODIAZEPINES, UR NEGATIVE (NEGATIVE); OPIATES, UR NEGATIVE (NEGATIVE); PHENCYCLIDINE, UR NEGATIVE (NEGATIVE)
[2018-12-01 19:15] LABS: SQUAMOUS EPITHIAL < 1 /hpf (0-5); URINE BACTERIA RARE (<OCC); URINE BILIRUBIN NEGATIVE (NEGATIVE); URINE BLOOD NEGATIVE (NEGATIVE); URINE CLARITY Clear (Clear); URINE COLOR Straw (YELLOW); URINE GLUCOSE (UA) NORMAL (Normal); URINE LEUKOCYTE ESTERASE NEG Leu/uL (Negative); URINE PROTEIN NEGATIVE (NEGATIVE); URINE UROBILINOGEN NORMAL mg/dL (0.2-1.0)
[2018-12-01 19:25] LABS: BASO % 0.9 % (0.0-2.0); EOS # 0.2 K/uL (0.0-0.7); HEMOGLOBIN 13.2 g/dL (11.0-16.0); LYMPH # 1.4 K/uL (1.0-4.3); LYMPH % 29.8 % (20.0-40.0); MEAN CELL VOLUME 87.7 fL (81.0-99.0); MEAN CORPUSCULAR HEMOGLOBIN 28.5 pg (27.0-31.0); MEAN CORPUSCULAR HGB CONC 32.5 g/dL (33.0-37.0); MEAN PLATELET VOLUME 10.1 fL (7.2-11.7); MONO # 0.6 K/uL (0.0-0.8); MONO % 13.4 % (0.0-10.0); NEUT # 2.4 K/uL (1.8-7.0); NEUT % 51.9 % (50.0-75.0); RBC 4.64 Mil/uL (3.80-5.20); RED CELL DISTRIBUTION WIDTH 16.6 % (11.5-14.5); WHITE BLOOD COUNT 4.6 K/uL (4.8-10.8)
[2018-12-01 19:33] LABS: ALB/GLOB RATIO 1.4 (1.0-2.1); ALBUMIN 4.2 g/dL (3.5-5.0); ALT/SGPT 13 U/L (9-52); AST/SGOT 19 U/L (14-36); BLOOD UREA NITROGEN 15 mg/dL (7-17); CALCIUM 9.3 mg/dl (8.6-10.4); GFR NON-AFRICAN AMERICAN 58
--- NOTE | 2018-12-01 23:21 | PCM.BM ---
<Gallo Harrison - Last Filed: 12/01/18 23:20> Treatment Plan Problems - Problems identified on initial assessmt Visual Hallucinations Date Initiated: 12/01/18 Time Initiated: 22:15 Assessment reference: NA High Risk : Violence Date Initiated: 12/01/18 Time Initiated: 22:15 Assessment reference: NA Status: Active Treatment assets and liabiliti Patient Assests: adapts well, negotiates basic needs, other, motivated, self- reliant, ADL independent, physically healthy Patient Liabilities: substance abuse (Cocaine), medical problems (History of right DVT) - Milieu Protocol Maintain good personal hygiene: daily Encourage regular showers, daily Remind patient to perform daily oral care, every shift Assist patient to perform ADL's Maintain personal safety: every shift Educate patient to report safety concerns to staff, every shift Monitor environment for contraband/sharps Medication safety: Monitor for expected outcome, potential side effects: every shift, Assess barriers to learning: every shift, Assess readiness for medication education: every shift <Kanika Jean - Last Filed: 12/03/18 11:36> Family Contact Family involvement: Famliy/SO not involved - Goals for Treatment Patient goals for treatment: "I need the right medication." Discharge/Continuing Care - Education Needs Education Needs: Patient Medication, Patient Coping Skills, Patient Placement options, Patient Community resources - Discharge Discharge Criteria: Tolerates medication w/o severe side effects, Reduction of target symptoms Discharge to:: [facility] - Treatment Team Participation Discussed with Family/SO: No Was Patient/Family/SO present at Treatment Team Meeting: Yes
--- NOTE | 2018-12-02 09:50 | PCM.PSYCH ---
Initial Psychiatric Evaluation - Initial Psychiatric Evaluation Type of Admission: Voluntary Legal Status: Capacity Chief Complaint (in patient's own words): Everyone is against me..' History of Present Illness and Precipitating Events: Patient is a 53 y/o female, who lives alone, with extensive history of schizophrenia, came into the ED because of suicidal ideation, homicidal ideation and auditory hallucinations. Patient remained disorganized and internally preoccupied throughout the evaluation. She appeared to have loose associations. She states that she was hearing a male voice instructing her to perform falacio. She says that she has been feeling paranoid and that she "feels spiritual." She also mentioned that he " Illuminati was spiritual like me". She states that a boy is tormenting her and that she sees ghost. She reports suicidal ideation and homicidal ideation, to " hurt the people that wouldn't leave her alone." Pt has an extensive psych history with several previous psych admissions at [facility]. The patient also states that she was hospitalized for [address] [facility]. When asked, she does report compliance with her seroquel?. States that she stopped doing cocaine and drinking alcohol 3 weeks ago because "a spirit came to her and told her to stop." Upon speaking with her the patient has disorganized speech with loose associations. She remains superficially cooperative and guarded about the details. She appears paranoid and bizarre. Past medical history None reported Current Medications: Active Medications Generic Name Dose Route Start Last Admin Trade Name Freq PRN Reason Stop Dose Admin Benztropine Mesylate 1 mg 12/01/18 22:28 12/01/18 22:38 Cogentin PO 1 mg Q6H PRN Administration EPS symptoms Diphenhydramine HCl 25 mg 12/01/18 22:28 12/01/18 22:38 Benadryl PO 25 mg Q6 PRN Administration mild anxiety Haloperidol 5 mg 12/01/18 22:28 12/01/18 22:38 Haldol PO 5 mg Q6H PRN Administration Agitation Pneumococcal Polyvalent Vaccine 0.5 ml 12/04/18 22:00 Pneumovax 23 Vaccine IM 12/04/18 22:01 .ONCE ONE Quetiapine Fumarate 300 mg 12/01/18 22:45 12/01/18 22:38 Seroquel PO 300 mg HS BOLIVAR Administration Past Psychiatric History - Past Psychiatric History Previous Treatment History: Inpatient Pertinent Medical Hx (Current Medical&Sleep Prob, Allergies): Allergies Allergy/AdvReac Type Severity Reaction Status Date / Time No Known Allergies Allergy Verified 12/01/18 15:16 Apixaban [Eliquis] 5 mg PO Q12H #14 tab 06/30/18 Quetiapine Fumarate [Seroquel] 300 mg PO AMHS #30 tab 06/30/18 Divalproex [Depakote DR(*BID*)] 1,500 mg PO HS 12/01/18 Zolpidem [Ambien] 10 mg PO HS PRN 12/01/18 metFORMIN [glucOPHAGE] 500 mg PO BID 12/01/18 Review of Systems - Review of Systems All systems: reviewed and no additional remarkable complaints except - Psychiatric Psychiatric: Anxiety, Auditory Hallucinations, Hallucinations, Homicidal I deation, Irritability, Paranoia, Suicidal Ideation Mental Status Examination - Personal Presentation Personal Presentation: Looks stated age - Affect Affect: Broad - Motor Activity Motor Activity: Psychomotor Agitation - Reliability in Providing Information Reliability in Providing Information: Poor, due to alteration in thoughts, Poor, due to altered mood - Speech Speech: Disorganized - Mood Mood: Anxious - Formal Thought Process Formal Thought Process: Hallucinations, Delusions, Paranoia, Loosening of associations, Flight of ideas - Hallucinations/Delusions Hallucinations: Visual, Auditory Delusions: Persecution - Obsessions/Compulsions Obsessions: No Compulsions: No - Cognitive Functions Orientation: Person, Place, Situation, Time Sensorium: Alert Attention/Concentration: Attentive Abstract Thinking: [place] Estimate of Intelligence: Below average Judgement: Imparied, as evidence by: Poor judgement, Imparied, as evidence by: Lack of insight into illness - Risk Risk: Suicidal, Homicidal, Diminished functioning - Limitations Limitations: Living alone DSM 5 DX - DSM 5 DSM 5 Diagnosis: Schizoaffective disorder bipolar type Alcohol use disorder severe in early remission Cocaine use disorder severe in early remission - Recommended/Plan of Treatment Treatment Recommendations and Plan of Treatment: Schizoaffective disorder bipolar type Alcohol use disorder severe in early remission Cocaine use disorder severe in early remission CBT Psychoeducation and supportive therapy and group therapy Prolixin for psychosis Depakote for mood Klonopin for anxiety Ativan for agitation Seroquel for insomnia - Smoking Cessation Smoking Cessation Initiated: No
--- NOTE | 2018-12-02 10:06 | RAD ---
Date of service: 12/01/2018 HISTORY: cough fever COMPARISON: 12/30/2015 TECHNIQUE: Chest PA and lateral views FINDINGS: LUNGS: No active pulmonary disease. PLEURA: No significant pleural effusion identified. No pneumothorax apparent. CARDIOVASCULAR: No aortic atherosclerotic calcification present. Normal cardiac size. No pulmonary vascular congestion. OSSEOUS STRUCTURES: Thoracic spondylosis VISUALIZED UPPER ABDOMEN: Normal. OTHER FINDINGS: None. IMPRESSION: No interval active disease.
[2018-12-02] MEDS ORDERED: DiphenhydrAMINE 50 mg/ml Inj IM PRN (11:27)
[2018-12-02] MEDS: Divalproex 250 mg DR Tab PO SCH ×2 (11:53→17:43)
[2018-12-03] MEDS: Divalproex 250 mg DR Tab PO SCH ×2 (10:26→17:12)
--- NOTE | 2018-12-03 10:26 | PCM.PYCHPN ---
Psychiatric Progress Note - Psychiatric Progress Note Patient seen today, length of contact: 15 min Patient Chief Complaint: Everyone is against me..' Problems Identified/Issues Discussed: Patient seen and evaluated, chart reviewed and discussed with the staff. As per staff, patient remained irritable, agitated and non-redirectable. She is still yelling and cursing at the staff and other peers. She appeared disorganized and internally preoccupied. As per the staff, she is still responding to internal stimuli and she appears paranoid and delusional. However she is taking medications but denies any side effects. She needs to stay longer for further stabilization of the symptoms. Supportive therapy was given. Medication Change: Yes Medical Record Reviewed: Yes Mental Status Examination - Cognitive Function Orientation: Person, Place, Situation, Time Memory: Intact Attention: Poor Concentration: Poor Association: Loose Fund of Knowledge: Poor - Mood Mood: Anxious - Affect Affect: Broad - Speech Speech: Pressured - Formal Thought Process Formal Thought Process: Hallucinations, Delusions, Paranoia, Loosening of associations, Flight of ideas - Suicidal Ideation Suicidal Ideation: No - Homicidal Ideation Homicidal Ideation: No Goal/Treatment Plan - Goal/Treatment Plan Need for Continued Stay: Remain at risks for inpatient hospitalization Progress Toward Problem(s) and Goals/Treatment Plan: Schizoaffective disorder bipolar type Alcohol use disorder severe in early remission Cocaine use disorder severe in early remission CBT Psychoeducation and supportive therapy and group therapy Prolixin for psychosis Depakote for mood Klonopin for anxiety Ativan for agitation Seroquel for insomnia
[2018-12-04] MEDS: Divalproex 250 mg DR Tab PO SCH ×2 (09:39→17:15)
--- NOTE | 2018-12-04 20:44 | PCM.PYCHPN ---
Psychiatric Progress Note - Psychiatric Progress Note Patient seen today, length of contact: 15 min Patient Chief Complaint: I am still hearing voices.' Problems Identified/Issues Discussed: Patient seen and evaluated, chart reviewed and discussed with the staff. She appeared disorganized but less internally preoccupied than before. As per the staff, she is still responding to internal stimuli and she appears paranoid and delusional. As per staff, patient remained irritable, agitated but she is directable. She is not yelling and cursing at the staff and peers any more. She is taking medications but denies any side effects. She needs to stay longer for further stabilization of the symptoms. Supportive therapy was given. Medication Change: Yes Medical Record Reviewed: Yes Mental Status Examination - Cognitive Function Orientation: Person, Place, Situation, Time Memory: Intact Attention: Poor Concentration: Poor Association: Loose Fund of Knowledge: Poor - Mood Mood: Anxious - Affect Affect: Broad - Speech Speech: Pressured - Formal Thought Process Formal Thought Process: Hallucinations, Delusions, Paranoia, Loosening of associations, Flight of ideas - Suicidal Ideation Suicidal Ideation: No - Homicidal Ideation Homicidal Ideation: No Goal/Treatment Plan - Goal/Treatment Plan Need for Continued Stay: Remain at risks for inpatient hospitalization Progress Toward Problem(s) and Goals/Treatment Plan: Schizoaffective disorder bipolar type Alcohol use disorder severe in early remission Cocaine use disorder severe in early remission CBT Psychoeducation and supportive therapy and group therapy Prolixin for psychosis Depakote for mood Klonopin for anxiety Ativan for agitation Seroquel for insomnia
[2018-12-04] MEDS ORDERED: Pneumococcal 23-Valent Vaccine IM ONE (22:00)
[2018-12-05] MEDS: Divalproex 250 mg DR Tab PO SCH ×2 (09:46→17:40)
--- NOTE | 2018-12-05 10:43 | PCM.PYCHPN ---
Psychiatric Progress Note - Psychiatric Progress Note Patient seen today, length of contact: 15 min Patient Chief Complaint: I am still hearing voices.' Problems Identified/Issues Discussed: Patient seen and evaluated, chart reviewed and discussed with the staff. She appeared more organized and less internally preoccupied than before. She is not yelling and cursing at the staff and peers any more. She is still responding to internal stimuli and she appears paranoid and delusional. As per staff, she is more redirectable. She is taking medications but denies any side effects. She needs to stay longer for further stabilization of the symptoms. Supportive therapy was given. Medication Change: Yes Medical Record Reviewed: Yes Mental Status Examination - Cognitive Function Orientation: Person, Place, Situation, Time Memory: Intact Attention: Poor Concentration: Poor Association: Loose Fund of Knowledge: Poor - Mood Mood: Anxious - Affect Affect: Broad - Speech Speech: Pressured - Formal Thought Process Formal Thought Process: Hallucinations, Delusions, Paranoia, Loosening of associations, Flight of ideas - Suicidal Ideation Suicidal Ideation: No - Homicidal Ideation Homicidal Ideation: No Goal/Treatment Plan - Goal/Treatment Plan Need for Continued Stay: Remain at risks for inpatient hospitalization Progress Toward Problem(s) and Goals/Treatment Plan: Schizoaffective disorder bipolar type Alcohol use disorder severe in early remission Cocaine use disorder severe in early remission CBT Psychoeducation and supportive therapy and group therapy Prolixin for psychosis Depakote for mood Klonopin for anxiety Ativan for agitation Seroquel for insomnia
[2018-12-06 06:38] VITALS: RESP 20
[2018-12-06] MEDS: Divalproex 250 mg DR Tab PO SCH (09:29)
--- NOTE | 2018-12-06 22:46 | PCM.PYCHPN ---
Psychiatric Progress Note - Psychiatric Progress Note Patient seen today, length of contact: 15 min Patient Chief Complaint: I want to go home today. Problems Identified/Issues Discussed: Patient seen, chart reviewed, case discussed with the staff. Issues related to illness and treatment were discussed with the patient and staff. Reported compliant with treatment with no adverse effect. Tolerating treatment very well. Patient reported feeling better and requesting for discharge from the hospital. Later patient reported that she wants to smoke cigarettes that so she wants to go home. Offered nicotine patch, patient refused. Staff reported and also observed that patient was agitated and irritable, required medications to control behavior. Patient denied any delusions, auditory or visual hallucinations, no suicidal ideations or homicidal ideation at the time of evaluation. Medical Problems: Diabetes mellitus Diagnostic Results: Reviewed DSM 5 Symptoms Update: Some improvement with treatment. Medication Change: No Medical Record Reviewed: Yes Mental Status Examination - Cognitive Function Orientation: Person, Place, Situation, Time Memory: Intact Attention: WNL Concentration: WNL Association: WNL Fund of Knowledge: [facility] Decription of patient's judgement and insights: Fair - Mood Mood: Neutral - Affect Affect: Blunted - Speech Speech: Pressured - Formal Thought Process Formal Thought Process: Loosening of associations, Flight of ideas - Suicidal Ideation Suicidal Ideation: No - Homicidal Ideation Homicidal Ideation: No Goal/Treatment Plan - Goal/Treatment Plan Need for Continued Stay: Remain at risks for inpatient hospitalization, Discharge may exacerbated symptoms, Severe functional impairment Progress Toward Problem(s) and Goals/Treatment Plan: Patient education. Supportive therapy. Continue treatment as before. Estimated Date of D/C: 12/08/18 - Smoking Cessation Smoking Cessation Initiated: No
[2018-12-07] MEDS: Divalproex 250 mg DR Tab PO SCH ×3 (09:23→17:52)
[2018-12-08 06:27] VITALS: BP 128/79; PULSE 60; TEMP 97.5; O2SAT 99
[2018-12-08] MEDS: Divalproex 250 mg DR Tab PO SCH (09:00)
--- NOTE | 2018-12-08 09:55 | PCM.PYCHDC ---
Mental Status Examination - Mental Status Examination Orientation: Person Discharge Summary - Discharge Note Consultations:: List each consultation separately and include: 1. Reason for request. 2. Findings. 3. Follow-up Summary of Hospital Course include:: 1. Description of specific treatment plan utilized for patients during their course of treatmen. 2. Summarize the time- course for resolution of acute symptoms and/or regressed behaviors. 3. Describe issues identified and worked on during hospitalization. 4. Describe medication utilized. 5. Describe medical problems identified and treated. 6. Reassessment of suicide risk Summary of Hospital Course: She will go to a private psychiatrist. - Final Diagnosis (DSM 5) Condition upon Discharge: IMPROVED Disposition: HOME/ ROUTINE Prescriptions/Medication Reconciliation: Apixaban [Eliquis] 5 mg PO Q12H #60 tab Benztropine [Cogentin] 1 mg PO DAILY #30 tab fluPHENAZine [Prolixin] 10 mg PO BID #60 tab metFORMIN [glucOPHAGE] 500 mg PO BID #60 tab QUEtiapine [Seroquel] 300 mg PO HS #30 tab
[2018-12-08] MEDS ORDERED: Divalproex 500 mg DR Tab PO SCH (10:00)
== END 2018-12-08 10:21 | disposition home or self-care (01) | DRG 430 ==
LOC: C.ER 14:36 → C.5E 21:01
PROC: GZHZZZZ Group Psychotherapy (ICD-10-PCS; principal; 2018-12-01)
PROC: GZ58ZZZ Individual Psychotherapy, Cognitive-Behavioral (ICD-10-PCS; 2018-12-01)
PROC: GZ56ZZZ Individual Psychotherapy, Supportive (ICD-10-PCS; 2018-12-01)
DX: F25.0 Schizoaffective disorder, bipolar type (principal); D57.1 Sickle-cell disease without crisis; J43.9 Emphysema, unspecified; F14.21 Cocaine dependence, in remission; F10.21 Alcohol dependence, in remission; R45.851 Suicidal ideations; F60.9 Personality disorder, unspecified; R45.850 Homicidal ideations; F41.9 Anxiety disorder, unspecified; E11.9 Type 2 diabetes mellitus without complications; F17.210 Nicotine dependence, cigarettes, uncomplicated; G47.00 Insomnia, unspecified; J45.909 Unspecified asthma, uncomplicated; Z86.718 Personal history of other venous thrombosis and embolism; R45.1 Restlessness and agitation

== ENCOUNTER 2018-12-28 21:34 | Inpatient (IN) | payer MEDICAID ==
[2018-12-28 21:35] VITALS: BMI 29.2
[2018-12-28 22:44] LABS: BASO % 0.6 % (0.0-2.0); EOS # 0.2 K/uL (0.0-0.7); EOS % 3.8 % (0.0-4.0); HEMOGLOBIN 13.6 g/dL (11.0-16.0); LYMPH # 1.9 K/uL (1.0-4.3); LYMPH % 29.4 % (20.0-40.0); MEAN CELL VOLUME 87.4 fL (81.0-99.0); MEAN CORPUSCULAR HEMOGLOBIN 28.4 pg (27.0-31.0); MEAN CORPUSCULAR HGB CONC 32.5 g/dL (33.0-37.0); MEAN PLATELET VOLUME 9.5 fL (7.2-11.7); MONO # 0.5 K/uL (0.0-0.8); MONO % 8.2 % (0.0-10.0); NEUT # 3.8 K/uL (1.8-7.0); RBC 4.8 Mil/uL (3.80-5.20); RED CELL DISTRIBUTION WIDTH 15.6 % (11.5-14.5); WHITE BLOOD COUNT 6.6 K/uL (4.8-10.8)
[2018-12-28 22:59] LABS: ALB/GLOB RATIO 1.3 (1.0-2.1); ALBUMIN 4.8 g/dL (3.5-5.0); ALT/SGPT 27 U/L (9-52); AST/SGOT 30 U/L (14-36); BLOOD UREA NITROGEN 21 mg/dL (7-17); GFR NON-AFRICAN AMERICAN 58
--- NOTE | 2018-12-28 23:02 | C.PDOC ---
History Of Present Illness Patient presents to ED requesting alcohol detox (states she drinks rum daily) as well as psychiatric evaluation. She states she has been drinking heavily for approx 2 months, but denies drug use. She also denies SI/HI. Time Seen by Provider: 12/28/18 21:53 Chief Complaint (Nursing): Psychiatric Evaluation History Per: Patient History/Exam Limitations: other (flight of ideas) Modifying Factor(s): Alcohol Severity: Moderate Past Medical History Reviewed: Historical Data, Nursing Documentation, Vital Signs Vital Signs: Last Vital Signs Temp 97.9 F 12/28/18 21:54 Pulse 89 12/28/18 21:54 Resp 20 12/28/18 21:54 BP 151/80 H 12/28/18 21:54 Pulse Ox 96 12/28/18 21:54 Primary Care Provider: FAMILY PROVIDER,NO - Medical History PMH: Anemia, Anxiety, Arthritis, Asthma, Bipolar Disorder, Bronchitis, Depression, Diabetes, Deep Vein Thrombosis, Emphysema, Personality Disorder, Pneumonia, Schizophrenia, Sickle Cell Disease - [facility] Procedures ALCOHOL DETOXIFICATION (04/19/13) EXCISION OF LEFT FOOT SKIN, EXTERNAL APPROACH (05/05/18) EXCISION OF RIGHT FOOT SKIN, EXTERNAL APPROACH (05/05/18) EXCISION OF TOE NAIL, EXTERNAL APPROACH (05/05/18) GROUP PSYCHOTHERAPY (12/01/18) INDIVID PSYCHOTHERAP NEC (07/24/13) INDIVIDUAL PSYCHOTHERAPY, COGNITIVE-BEHAVIORAL (12/01/18) INDIVIDUAL PSYCHOTHERAPY, SUPPORTIVE (12/01/18) INSERTION OF INTRALUM DEV INTO INF VENA CAVA, PERC APPROACH (05/24/16) MEDICATION MANAGEMENT (05/30/18) MEDS MGMT FOR SUBSTANCE ABUSE TREATMENT, NICOTINE REPLACE (05/30/18) MEDS MGMT FOR SUBSTANCE ABUSE TREATMENT, OTH REPL MED (05/30/18) OTHER GROUP THERAPY (07/24/13) PSYCHIA INTERV/EVAL NEC (01/02/14) PSYCHIAT DRUG THERAP NEC (04/30/15) SUPPOR VERBAL PSYCHOTHER (05/25/13) Family History: States: No Known Family Hx - Social History Hx Tobacco Use: Yes Hx Alcohol Use: Yes Hx Substance Use: No - Immunization History Hx Tetanus Toxoid Vaccination: No Hx Influenza Vaccination: No Hx Pneumococcal Vaccination: No Review Of Systems Cardiovascular: Negative for: Chest Pain, Palpitations Respiratory: Negative for: Shortness of Breath Gastrointestinal: Negative for: Nausea, Vomiting, Abdominal Pain, Diarrhea Psych: Positive for: Other (alcohol dependence) Physical Exam - Physical Exam Appears: Well, Non-toxic, Other (calm and cooperative ) Skin: Normal Color, Warm, Dry Head: Normacephalic Eye(s): bilateral: Normal Inspection Oral Mucosa: Moist Cardiovascular: Rhythm Regular Respiratory: Normal Breath Sounds, No Rales, No Rhonchi, No Wheezing Extremity: Normal ROM Extremity: Bilateral: Atraumatic, Normal Color And Temperature, Normal ROM Neurological/Psych: Oriented x3, Other (pressured speech/flight of ideas) Gait: Steady ED Course And Treatment - Laboratory Results Result Diagrams: 12/28/18 22:42 12/28/18 22:42 O2 Sat by Pulse Oximetry: 96 (RA) Pulse Ox Interpretation: Normal Progress Note: Blood work, UA, UDS ordered and reviewed. 11:45pm- Patient me dically cleared. Pending crisis. Disposition - Disposition Disposition Time: 00:00 Condition: STABLE Forms: [facility] (Iraqi) - Clinical Impression Clinical Impression: Alcohol abuse, Psychiatric symptoms Physician Patient Turnover Patient Signed Over To: Tyrone Dawson Handoff Comments: pending crisis, dispo
[2018-12-28 23:25] LABS: HCG,QUALITATIVE URINE NEGATIVE (NEGATIVE)
[2018-12-28 23:27] LABS: SQUAMOUS EPITHIAL 1 /hpf (0-5); URINE BILIRUBIN NEGATIVE (NEGATIVE); URINE BLOOD NEGATIVE (NEGATIVE); URINE CLARITY Clear (Clear); URINE COLOR Straw (YELLOW); URINE GLUCOSE (UA) NORMAL (Normal); URINE LEUKOCYTE ESTERASE NEG Leu/uL (Negative); URINE PROTEIN NEGATIVE (NEGATIVE); URINE UROBILINOGEN NORMAL mg/dL (0.2-1.0)
[2018-12-28 23:40] LABS: BARBITURATES, UR NEGATIVE (NEGATIVE); BENZODIAZEPINES, UR NEGATIVE (NEGATIVE); OPIATES, UR NEGATIVE (NEGATIVE); PHENCYCLIDINE, UR NEGATIVE (NEGATIVE)
--- NOTE | 2018-12-29 03:34 | PCM.BM ---
<AlvinLurdesRobbie Bety - Last Filed: 12/29/18 03:32> Treatment Plan Problems - Problems identified on initial assessmt Auditory Hallucinations Date Initiated: 12/29/18 Time Initiated: 02:15 Assessment reference: NA Status: Active Altered Thought Process Date Initiated: 12/29/18 Time Initiated: 02:15 Assessment reference: NA Status: Active Medication Nonadherence Date Initiated: 12/29/18 Time Initiated: 02:15 Assessment reference: NA Status: Active Treatment assets and liabiliti Patient Assests: ADL independent, negotiates basic needs, cognitively intact Patient Liabilities: live alone, substance abuse, medical problems - Milieu Protocol Maintain good personal hygiene: daily Encourage regular showers, daily Remind patient to perform daily oral care, daily Assist patient to perform ADL's Conduct patient checks and document Observation sheet: Q15 minutes Maintain personal safety: every shift Educate patient to report safety concerns to staff, every shift Monitor environment for contraband/sharps Medication safety: Monitor for expected outcome, potential side effects: every shift, Assess barriers to learning: every shift, Assess readiness for medication education: every shift <Stepan Garibay - Last Filed: 12/29/18 12:03> - Diagnosis (1) Schizoaffective disorder Status: Acute Interventions: 12/29/18 12:04 * Assess/adjust medications daily and /or as needed * See patient on an individual basis 7x/week to assess status of hallucinations * Discuss risks, benefits, side effects and alternatives of medications * <Kanika Jean - Last Filed: 12/29/18 13:28> Family Contact Family involvement: Famliy/SO not involved - Goals for Treatment Patient goals for treatment: "I don't know." Discharge/Continuing Care - Education Needs Education Needs: Patient Medication, Patient Coping Skills, Patient Placement options, Patient Community resources - Discharge Discharge Criteria: Tolerates medication w/o severe side effects, No longer exhibiting s/s of withdrawal, Reduction of target symptoms Discharge to:: [facility] - Treatment Team Participation Discussed with Family/SO: No Was Patient/Family/SO present at Treatment Team Meeting: Yes
[2018-12-29 05:43] VITALS: RESP 18
--- NOTE | 2018-12-29 09:02 | PCM.PSYCH ---
Initial Psychiatric Evaluation - Initial Psychiatric Evaluation Type of Admission: Voluntary Legal Status: Capacity Chief Complaint (in patient's own words): I am hearing voices.' History of Present Illness and Precipitating Events: Pt is a 53 years old female with PMHx of schizoaffective disorder, presented to the [facility] disorganized and internally preoccupied state. Patient has a long history of schizoaffective disorder. She was recently discharged from [facility] one month ago. She appeared disorganized. As per the patient she stopped taking her medications and she started hearing voices. Patient appeared internally preoccupied and she was responding to internal stimuli during the interview. She was yelling and cursing at the staff and appeared very paranoid and delusional. She suddenly started yelling, ' they came to the house to rape her.' I will f--- all of them.' Then she started yelling at the staff, saying, do not f--- with her. She remained paranoid, bizarre and continued to have loose associations. She remained irritable and agitated and remained non-redirectable throughout the interview. She reports of drinking some beers but denies abusing any drugs. PMHx: None reported Current Medications: Active Medications Generic Name Dose Route Start Last Admin Trade Name Freq PRN Reason Stop Dose Admin Chlordiazepoxide 25 mg 12/29/18 06:00 12/29/18 06:24 Librium PO 01/02/19 05:59 Not Given Q6 BOLIVAR Taper Haloperidol 5 mg 12/29/18 02:34 Haldol PO Q6 PRN Agitation Pneumococcal Polyvalent Vaccine 0.5 ml 01/01/19 10:00 Pneumovax 23 Vaccine IM 01/01/19 10:01 .ONCE ONE Past Psychiatric History - Past Psychiatric History Previous Treatment History: Inpatient Pertinent Medical Hx (Current Medical&Sleep Prob, Allergies): Allergies Allergy/AdvReac Type Severity Reaction Status Date / Time No Known Allergies Allergy Verified 12/28/18 21:59 Apixaban [Eliquis] 5 mg PO 1000,2200 #14 tab 12/26/18 Benztropine [Cogentin] 1 mg PO BID #30 tab 12/26/18 Divalproex [Nas GREEN (*BID*)] 250 mg PO HS #14 tcp 12/26/18 Divalproex [Depakote DR(*BID*)] 500 mg PO AMHS #30 tcp 12/26/18 Nicotine 21 mg/24 hr [Nicoderm Cq] 1 patch TD DAILY #14 patch 12/26/18 QUEtiapine [SEROquel] 300 mg PO AMHS #30 tab 12/26/18 Zolpidem [Ambien] 5 mg PO HS PRN #14 tab 12/26/18 fluPHENAZine [Prolixin] 10 mg PO BID #30 tab 12/26/18 metFORMIN [glucOPHAGE] 500 mg PO BID #14 tab 12/26/18 Review of Systems - Review of Systems All systems: reviewed and no additional remarkable complaints except - Psychiatric Psychiatric: Anxiety, Auditory Hallucinations, Irritability, Mood Swings, Paranoia Mental Status Examination - Personal Presentation Personal Presentation: Looks stated age - Affect Affect: Broad - Motor Activity Motor Activity: Psychomotor Agitation - Reliability in Providing Information Reliability in Providing Information: Poor, due to alteration in thoughts, Poor, due to altered mood - Speech Speech: Disorganized - Mood Mood: Anxious - Formal Thought Process Formal Thought Process: Hallucinations, Delusions, Paranoia, Loosening of associations, Flight of ideas - Hallucinations/Delusions Hallucinations: Visual, Auditory Delusions: Persecution - Obsessions/Compulsions Obsessions: No Compulsions: No - Cognitive Functions Orientation: Person, Place, Situation, Time Sensorium: Alert Attention/Concentration: Attentive Abstract Thinking: [place] Estimate of Intelligence: Below average Judgement: Imparied, as evidence by: Poor judgement, Imparied, as evidence by: Lack of insight into illness - Risk Risk: Suicidal, Diminished functioning - Limitations Limitations: Living alone DSM 5 DX - DSM 5 DSM 5 Diagnosis: Schizoaffective disorder bipolar type - Recommended/Plan of Treatment Treatment Recommendations and Plan of Treatment: Schizoaffective disorder bipolar type CBT Psychoeducation Supportive therapy and group therapy Prolixin for psychosis Depakote for mood Klonopin for severe anxiety Ativan for mild anxiety Trazodone for insomnia Seroquel for insomnia - Smoking Cessation Smoking Cessation Initiated: No
[2018-12-29] MEDS: Divalproex 250 mg DR Tab PO SCH ×2 (09:18→17:00)
--- NOTE | 2018-12-30 10:21 | PCM.PYCHPN ---
Psychiatric Progress Note - Psychiatric Progress Note Patient seen today, length of contact: 15 min Patient Chief Complaint: I am hearing voices.' Problems Identified/Issues Discussed: Patient was seen and evaluated, chart reviewed and discussed the staff. Patient remained disorganized and internally preoccupied. She still appears paranoid and delusional. As per staff she is still irritable and agitated at the staff and she suddenly starts yelling and cursing at them. Yesterday she took the food tray to her room yelling and cursing at the staff saying, do not come after her. However she is taking medications but denies any side effects. She needs to stay longer for the stabilization of her symptoms. Supportive therapy was provided. Medication Change: Yes Medical Record Reviewed: Yes Mental Status Examination - Cognitive Function Orientation: Person, Place, Situation, Time Memory: Intact Attention: Poor Concentration: Poor Association: Loose Fund of Knowledge: Poor - Mood Mood: Anxious - Affect Affect: Broad - Speech Speech: Loud, Pressured - Formal Thought Process Formal Thought Process: Hallucinations, Delusions, Paranoia, Loosening of associations, Flight of ideas - Suicidal Ideation Suicidal Ideation: No - Homicidal Ideation Homicidal Ideation: No Goal/Treatment Plan - Goal/Treatment Plan Need for Continued Stay: Remain at risks for inpatient hospitalization Progress Toward Problem(s) and Goals/Treatment Plan: Schizoaffective disorder bipolar type CBT Psychoeducation Supportive therapy and group therapy Prolixin for psychosis Depakote for mood Klonopin for severe anxiety Ativan for mild anxiety Trazodone for insomnia Seroquel for insomnia
[2018-12-30] MEDS: Divalproex 250 mg DR Tab PO SCH ×2 (10:48→17:13)
[2018-12-31] MEDS: Divalproex 250 mg DR Tab PO SCH (10:07)
[2018-12-31 16:06] VITALS: O2SAT 98
[2018-12-31] MEDS: Divalproex 500 mg DR Tab PO SCH (17:15)
[2019-01-01] MEDS: Divalproex 500 mg DR Tab PO SCH ×2 (09:52→17:13)
[2019-01-01 09:54] VITALS: PULSE 84; TEMP 98.1
[2019-01-01] MEDS ORDERED: Pneumococcal 23-Valent Vaccine IM ONE (10:00)
--- NOTE | 2019-01-01 16:09 | PCM.PYCHPN ---
Psychiatric Progress Note - Psychiatric Progress Note Patient seen today, length of contact: 15 min Patient Chief Complaint: I am feeling much better.' Problems Identified/Issues Discussed: Patient was seen and evaluated, chart reviewed and discussed the staff. Patient appears more organized and less paranoid and delusional. As per staff she is less irritable and agitated than before. However she is taking medications but denies any side effects. She needs to stay longer for the stabilization of her symptoms. Supportive therapy was provided. Medication Change: Yes Medical Record Reviewed: Yes Mental Status Examination - Cognitive Function Orientation: Person, Place, Situation, Time Memory: Intact Attention: WNL Concentration: WNL Association: WNL Fund of Knowledge: Poor - Mood Mood: Anxious - Affect Affect: Broad - Speech Speech: Appropriate - Formal Thought Process Formal Thought Process: Paranoia, Loosening of associations - Suicidal Ideation Suicidal Ideation: No - Homicidal Ideation Homicidal Ideation: No Goal/Treatment Plan - Goal/Treatment Plan Need for Continued Stay: Remain at risks for inpatient hospitalization Progress Toward Problem(s) and Goals/Treatment Plan: Schizoaffective disorder bipolar type CBT Psychoeducation Supportive therapy and group therapy Prolixin for psychosis Depakote for mood Klonopin for severe anxiety Ativan for mild anxiety Trazodone for insomnia Seroquel for insomnia
[2019-01-01 17:19] VITALS: BP 120/83
--- NOTE | 2019-01-02 09:59 | PCM.PYCHDC ---
Mental Status Examination - Mental Status Examination Orientation: Person, Place, Situation, Time Memory: Intact Mood: Neutral Affect: Constricted Speech: Soft Attention: WNL Concentration: WNL Association: WNL Fund of Knowledge: WNL Formal Thought Process: No Impairment Description of patient's judgement and insight: good, fair Psychotic Thoughts and Behaviors: denies any AVH Suicidal Ideation: No Current Homicidal Ideation?: No Discharge Summary - Discharge Note Reason for Hospitalization: Pt is a 53 years old female with PMHx of schizoaffective disorder, presented to the [facility] disorganized and internally preoccupied state. Patient has a long history of schizoaffective disorder. She was recently discharged from [facility] one month ago. She appeared disorganized. As per the patient she stopped taking her medications and she started hearing voices. Patient appeared internally preoccupied and she was responding to internal stimuli during the interview. She was yelling and cursing at the staff and appeared very paranoid and delusional. She suddenly started yelling, ' they came to the house to rape her.' I will f--- all of them.' Then she started yelling at the staff, saying, do not f--- with her. She remained paranoid, bizarre and continued to have loose associations. She remained irritable and agitated and remained non-redirectable throughout the interview. She reports of drinking some beers but denies abusing any drugs. PMHx: None reported Consultations:: List each consultation separately and include: 1. Reason for request. 2. Findings. 3. Follow-up Summary of Hospital Course include:: 1. Description of specific treatment plan utilized for patients during their course of treatmen. 2. Summarize the time- course for resolution of acute symptoms and/or regressed behaviors. 3. Describe issues identified and worked on during hospitalization. 4. Describe medication utilized. 5. Describe medical problems identified and treated. 6. Reassessment of suicide risk Summary of Hospital Course: Pt is a 53 years old female with PMHx of schizoaffective disorder, presented to the [facility] disorganized and internally preoccupied state. Patient has a long history of schizoaffective disorder. She was recently discharged from [facility] one month ago. She appeared disorganized. As per the patient she stopped taking her medications and she started hearing voices. Patient appeared internally preoccupied and she was responding to internal stimuli during the interview. She was yelling and cursing at the staff and appeared very paranoid and delusional. She suddenly started yelling, ' they came to the house to rape her.' I will f--- all of them.' Then she started yelling at the staff, saying, do not f--- with her. She remained paranoid, bizarre and continued to have loose associations. She remained irritable and agitated and remained non-redirectable throughout the interview. She reports of drinking some beers but denies abusing any drugs. PMHx: None reported - Diagnosis (1) Schizoaffective disorder Current Visit: Yes Status: Acute - Final Diagnosis (DSM 5) Condition upon Discharge: STABLE DSM 5: Schizoaffective disorder bipolar type Disposition: HOME/ ROUTINE Follow-up Treatment Plan: Schizoaffective disorder bipolar type CBT Psychoeducation Supportive therapy and group therapy Prolixin for psychosis Depakote for mood Klonopin for severe anxiety Ativan for mild anxiety Trazodone for insomnia Seroquel for insomnia Prescriptions/Medication Reconciliation: Divalproex [Depakote DR] 500 mg PO BID #60 tcp fluPHENAZine [Prolixin] 10 mg PO BID #60 tab hydrOXYzine HCl [Atarax] 50 mg PO BID PRN #60 tab PRN Reason: Anxiety traZODone [Desyrel] 100 mg PO HS PRN #30 tab PRN Reason: Insomnia
[2019-01-02] MEDS: Divalproex 500 mg DR Tab PO SCH (10:30)
== END 2019-01-02 10:30 | disposition home or self-care (01) | DRG 430 ==
LOC: C.ER 21:34 → C.5E 12-29 01:28
DX: F25.0 Schizoaffective disorder, bipolar type (principal); D57.1 Sickle-cell disease without crisis; J43.9 Emphysema, unspecified; F10.10 Alcohol abuse, uncomplicated; E11.9 Type 2 diabetes mellitus without complications; F41.9 Anxiety disorder, unspecified; F60.9 Personality disorder, unspecified; G47.00 Insomnia, unspecified; J45.909 Unspecified asthma, uncomplicated; Z87.891 Personal history of nicotine dependence; Y90.6 Blood alcohol level of 120-199 mg/100 ml

== ENCOUNTER 2019-01-03 02:29 | Emergency (ER) | payer MEDICAID ==
[2019-01-03 02:31] VITALS: BMI 29.2
[2019-01-03 05:12] VITALS: BP 134/79; PULSE 61; RESP 18; TEMP 98.2; O2SAT 98
--- NOTE | 2019-01-03 05:45 | C.PDOC ---
History Of Present Illness 53 year old female is brought to the ED by EMS for public intoxication. As per EMS patient was found smoking in the bathroom at [facility], patient admits to drinking alcohol tonight. Patient denies SI/HI, hallucinations, other complaints. Time Seen by Provider: 01/03/19 03:04 Chief Complaint (Nursing): Lower Extremity Problem/Injury History Per: Patient, EMS History/Exam Limitations: intoxication Onset/Duration Of Symptoms: Hrs Current Symptoms Are (Timing): Still Present Recent travel outside of the [place]: No Additional History Per: Patient Past Medical History Reviewed: Historical Data, Nursing Documentation, Vital Signs Vital Signs: Last Vital Signs Temp 98.2 F 01/03/19 05:12 Pulse 61 01/03/19 05:12 Resp 18 01/03/19 05:12 BP 134/79 01/03/19 05:12 Pulse Ox 98 01/03/19 05:12 Primary Care Provider: FAMILY PROVIDER,NO - Medical History PMH: Anemia, Anxiety, Arthritis, Asthma, Bipolar Disorder, Bronchitis, Depression, Diabetes, Deep Vein Thrombosis, Emphysema, Personality Disorder, Pneumonia, Schizophrenia, Sickle Cell Disease Denies: Hepatitis, HIV, HTN, Chronic Kidney Disease, Seizures, Sexually Transmitted Disease Surgical History: No Surg Hx - [facility] Procedures ALCOHOL DETOXIFICATION (04/19/13) EXCISION OF LEFT FOOT SKIN, EXTERNAL APPROACH (05/05/18) EXCISION OF RIGHT FOOT SKIN, EXTERNAL APPROACH (05/05/18) EXCISION OF TOE NAIL, EXTERNAL APPROACH (05/05/18) GROUP PSYCHOTHERAPY (12/01/18) INDIVID PSYCHOTHERAP NEC (07/24/13) INDIVIDUAL PSYCHOTHERAPY, COGNITIVE-BEHAVIORAL (12/01/18) INDIVIDUAL PSYCHOTHERAPY, SUPPORTIVE (12/01/18) INSERTION OF INTRALUM DEV INTO INF VENA CAVA, PERC APPROACH (05/24/16) MEDICATION MANAGEMENT (12/12/18) MEDS MGMT FOR SUBSTANCE ABUSE TREATMENT, NICOTINE REPLACE (05/30/18) MEDS MGMT FOR SUBSTANCE ABUSE TREATMENT, OTH REPL MED (05/30/18) OTHER GROUP THERAPY (07/24/13) PSYCHIA INTERV/EVAL NEC (01/02/14) PSYCHIAT DRUG THERAP NEC (04/30/15) SUPPOR VERBAL PSYCHOTHER (05/25/13) Family History: States: Unknown Family Hx - Social History Hx Tobacco Use: Yes Hx Alcohol Use: Yes Hx Substance Use: Yes - Immunization History Hx Tetanus Toxoid Vaccination: No Hx Influenza Vaccination: No Hx Pneumococcal Vaccination: No Review Of Systems Constitutional: Negative for: Fever, Chills Cardiovascular: Negative for: Chest Pain Respiratory: Negative for: Shortness of Breath Gastrointestinal: Negative for: Nausea, Vomiting, Abdominal Pain Skin: Negative for: Rash Psych: Negative for: Depression, Suicidal ideation Physical Exam - Physical Exam Appears: Non-toxic, No Acute Distress Skin: Normal Color, Warm, Dry Head: Atraumatic, Normacephalic Eye(s): bilateral: Normal Inspection Neck: Normal ROM, Supple Chest: Symmetrical Cardiovascular: Rhythm Regular Respiratory: Normal Breath Sounds, No Rales, No Rhonchi, No Wheezing Extremity: Normal ROM, No Tenderness, No Swelling Neurological/Psych: Oriented x3, Normal Speech, Normal Cognition Gait: Steady ED Course And Treatment O2 Sat by Pulse Oximetry: 98 (ON RA) Pulse Ox Interpretation: Normal Progress Note: Patient was seen ambulating in the ED with upright steady gait, in NAD stabke for D/C Disposition Counseled Patient/Family Regarding: Diagnosis, Need For Followup, Rx Given - Disposition Disposition: HOME/ ROUTINE Disposition Time: 05:44 Condition: STABLE Instructions: Alcohol Abuse and Alcoholism (DC) Forms: [employer] [facility] (Micronesian) - Clinical Impression Clinical Impression: Alcohol abuse - PA / CLEARANCE CUTTER / Resident Statement MD/DO has reviewed & agrees with the documentation as recorded. - Scribe Statement The provider has reviewed the documentation as recorded by the Scribe Lonnie Orozco All medical record entries made by the Scribe were at my direction and personally dictated by me. I have reviewed the chart and agree that the record accurately reflects my personal performance of the history, physical exam, medical decision making, and the department course for this patient. I have also personally directed, reviewed, and agree with the discharge instructions and disposition.
== END 2019-01-03 05:47 | disposition home or self-care (01) ==
LOC: C.ER 02:29
DX: F10.10 Alcohol abuse, uncomplicated (principal); E11.9 Type 2 diabetes mellitus without complications; F20.9 Schizophrenia, unspecified; Z72.0 Tobacco use; Z86.718 Personal history of other venous thrombosis and embolism; F31.9 Bipolar disorder, unspecified

== ENCOUNTER 2019-01-03 06:24 | Emergency (ER) | payer MEDICAID ==
[2019-01-03 06:25] VITALS: BMI 29.2
[2019-01-03 07:52] LABS: BASO % 0.7 % (0.0-2.0); EOS # 0.2 K/uL (0.0-0.7); EOS % 3.3 % (0.0-4.0); HEMOGLOBIN 12.7 g/dL (11.0-16.0); LYMPH # 2.4 K/uL (1.0-4.3); LYMPH % 45.2 % (20.0-40.0); MEAN CELL VOLUME 88.1 fL (81.0-99.0); MEAN CORPUSCULAR HEMOGLOBIN 28.6 pg (27.0-31.0); MEAN CORPUSCULAR HGB CONC 32.5 g/dL (33.0-37.0); MONO # 0.6 K/uL (0.0-0.8); MONO % 11.7 % (0.0-10.0); NEUT # 2.1 K/uL (1.8-7.0); NEUT % 39.1 % (50.0-75.0); RBC 4.42 Mil/uL (3.80-5.20); RED CELL DISTRIBUTION WIDTH 15.4 % (11.5-14.5); WHITE BLOOD COUNT 5.3 K/uL (4.8-10.8)
[2019-01-03 08:11] LABS: ALB/GLOB RATIO 1.3 (1.0-2.1); ALBUMIN 4.2 g/dL (3.5-5.0); ALT/SGPT 17 U/L (9-52); AST/SGOT 18 U/L (14-36); BLOOD UREA NITROGEN 24 mg/dL (7-17); CALCIUM 9.9 mg/dl (8.6-10.4); GFR NON-AFRICAN AMERICAN > 60
[2019-01-03 09:04] LABS: BARBITURATES, UR NEGATIVE (NEGATIVE); OPIATES, UR NEGATIVE (NEGATIVE); PHENCYCLIDINE, UR NEGATIVE (NEGATIVE)
[2019-01-03 09:11] LABS: BENZODIAZEPINES, UR POSITIVE (NEGATIVE)
--- NOTE | 2019-01-03 09:41 | C.PDOC ---
History Of Present Illness 53 y/o female, with psychiatric history, presents to ED complaining of bilateral knee pain secondary to arthritis. Patient was just discharged from the ER prior to being seen today. Upon discharge, patient put herself out of the wheelchair and went to the floor stating she couldnt walk. She denies head pain, neck pain, trauma, chest pain, SOB, or abdominal pain. Patient was found in [facility] last night and went to ED. Time Seen by Provider: 01/03/19 07:00 Chief Complaint (Nursing): Medical Clearance History Per: Patient History/Exam Limitations: no limitations Onset/Duration Of Symptoms: Hrs Current Symptoms Are (Timing): Still Present Past Medical History Reviewed: Historical Data, Nursing Documentation, Vital Signs Vital Signs: Last Vital Signs Temp 98.1 F 01/03/19 06:37 Pulse 91 H 01/03/19 06:37 Resp 16 01/03/19 06:37 BP 110/75 01/03/19 06:37 Pulse Ox 96 01/03/19 06:37 Primary Care Provider: Non [facility] Provider, - Medical History PMH: Anemia, Anxiety, Arthritis, Asthma, Bipolar Disorder, Bronchitis, Depression, Diabetes, Deep Vein Thrombosis, Emphysema, Personality Disorder, Pneumonia, Schizophrenia, Sickle Cell Disease Denies: Hepatitis, HIV, HTN, Chronic Kidney Disease, Seizures, Sexually Transmitted Disease - [facility] Procedures ALCOHOL DETOXIFICATION (04/19/13) EXCISION OF LEFT FOOT SKIN, EXTERNAL APPROACH (05/05/18) EXCISION OF RIGHT FOOT SKIN, EXTERNAL APPROACH (05/05/18) EXCISION OF TOE NAIL, EXTERNAL APPROACH (05/05/18) GROUP PSYCHOTHERAPY (12/01/18) INDIVID PSYCHOTHERAP NEC (07/24/13) INDIVIDUAL PSYCHOTHERAPY, COGNITIVE-BEHAVIORAL (12/01/18) INDIVIDUAL PSYCHOTHERAPY, SUPPORTIVE (12/01/18) INSERTION OF INTRALUM DEV INTO INF VENA CAVA, PERC APPROACH (05/24/16) MEDICATION MANAGEMENT (12/12/18) MEDS MGMT FOR SUBSTANCE ABUSE TREATMENT, NICOTINE REPLACE (05/30/18) MEDS MGMT FOR SUBSTANCE ABUSE TREATMENT, OTH REPL MED (05/30/18) OTHER GROUP THERAPY (07/24/13) PSYCHIA INTERV/EVAL NEC (01/02/14) PSYCHIAT DRUG THERAP NEC (04/30/15) SUPPOR VERBAL PSYCHOTHER (05/25/13) Family History: States: No Known Family Hx - Social History Hx Tobacco Use: Yes Hx Alcohol Use: Yes Hx Substance Use: Yes - Immunization History Hx Tetanus Toxoid Vaccination: No Hx Influenza Vaccination: No Hx Pneumococcal Vaccination: No Review Of Systems Except As Marked, All Systems Reviewed And Found Negative. Cardiovascular: Negative for: Chest Pain Respiratory: Negative for: Shortness of Breath Gastrointestinal: Negative for: Abdominal Pain Musculoskeletal: Positive for: Other (bilateral knee pain). Negative for: Neck Pain Physical Exam - Physical Exam Appears: Non-toxic, No Acute Distress, Other (Groggy) Skin: Warm, Dry Head: Atraumatic, Normacephalic Eye(s): bilateral: PERRL, EOMI Oral Mucosa: Moist Neck: Supple Cardiovascular: Rhythm Regular, No Murmur Respiratory: Normal Breath Sounds, No Rales, No Rhonchi, No Wheezing Gastrointestinal/Abdominal: Soft, No Tenderness Extremity: Swelling (bilateral swelling and warmth to both knees), Other (non- pitting edema to lower extremities) Extremity: Bilateral: Atraumatic Neurological/Psych: Oriented x3, Normal Speech ED Course And Treatment - Laboratory Results Result Diagrams: 01/03/19 07:49 01/03/19 07:49 Lab Results: Total Bilirubin 0.3 mg/dL (0.2-1.3) 01/03/19 07:49 AST 18 U/L (14-36) 01/03/19 07:49 ALT 17 U/L (9-52) 01/03/19 07:49 Alkaline Phosphatase 46 U/L (38-126) 01/03/19 07:49 Total Protein 7.5 g/dL (6.3-8.3) 01/03/19 07:49 Albumin 4.2 g/dL (3.5-5.0) 01/03/19 07:49 Globulin 3.3 gm/dL (2.2-3.9) 01/03/19 07:49 Albumin/Globulin Ratio 1.3 (1.0-2.1) 01/03/19 07:49 O2 Sat by Pulse Oximetry: 96 (RA) Pulse Ox Interpretation: Normal Medical Decision Making Medical Decision Making: Plan: --Labs Re-evaluation: 0930 Patient is sleeping soundly and resting comfortably. Denies alcohol use. States she took Depakote. Patient still groggy with slurred speech, requesting to cont act daughter. Also requesting to speak to psych for chronic psychosis. Patient slept for an extended amount of time. She was agitated everythime we went to see her. Now patient is awake and requesting discharge. Disposition - Disposition Disposition: HOME/ ROUTINE Disposition Time: 12:46 Condition: IMPROVED Forms: [facility] (Tamazight), General Discharge Instructions - POA Present On Arrival: None - Clinical Impression Clinical Impression: Knee pain, bilateral - Scribe Statement The provider has reviewed the documentation as recorded by the Anirudh Younger Provider Attestation: All medical record entries made by the Anirudh were at my direction and personally dictated by me. I have reviewed the chart and agree that the record accurately reflects my personal performance of the history, physical exam, medical decision making, and the department course for this patient. I have also personally directed, reviewed, and agree with the discharge instructions and disposition.
[2019-01-03 10:03] VITALS: RESP 18
[2019-01-03 12:43] VITALS: BP 109/69; PULSE 88; TEMP 97.5
[2019-01-03 12:47] VITALS: O2SAT 96
== END 2019-01-03 13:00 | disposition home or self-care (01) ==
LOC: C.ER 06:24
DX: M25.562 Pain in left knee (principal); M25.561 Pain in right knee; E11.9 Type 2 diabetes mellitus without complications; F20.9 Schizophrenia, unspecified; Z86.718 Personal history of other venous thrombosis and embolism; Z72.0 Tobacco use

== ENCOUNTER 2019-01-08 00:21 | Emergency (ER) | payer MEDICAID ==
[2019-01-08 00:22] VITALS: BMI 29.2
--- NOTE | 2019-01-08 00:36 | C.PDOC ---
History Of Present Illness Patient brought in via EMS after being found intoxicated in public. Patient admits to drinking. Denies SI or HI. Requests motrin for her arthritis pain. Time Seen by Provider: 01/08/19 00:35 Chief Complaint (Nursing): Lower Extremity Problem/Injury History Per: Patient, EMS History/Exam Limitations: no limitations Onset/Duration Of Symptoms: Hrs Current Symptoms Are (Timing): Still Present Suicide/Self Injury Attempted (Context): None Modifying Factor(s): Alcohol Severity: Moderate Pain Scale Rating Of: 4 Associated Symptoms: denies: Suicidal Thoughts, Other (Homicidal ideation) Recent travel outside of the [place]: No Past Medical History Reviewed: Historical Data, Nursing Documentation, Vital Signs Vital Signs: Last Vital Signs Temp 99.5 F 01/08/19 00:26 Pulse 105 H 01/08/19 00:26 Resp 16 01/08/19 00:26 BP 139/89 01/08/19 00:26 Pulse Ox 96 01/08/19 00:26 Primary Care Provider: FAMILY PROVIDER,NO - Medical History PMH: Anemia, Anxiety, Arthritis, Asthma, Bipolar Disorder, Bronchitis, Depression, Deep Vein Thrombosis, Emphysema, Personality Disorder, Pneumonia, Schizophrenia, Sickle Cell Disease Denies: Diabetes, Hepatitis, HIV, HTN, Chronic Kidney Disease, Seizures, Sexually Transmitted Disease - [facility] Procedures ALCOHOL DETOXIFICATION (04/19/13) EXCISION OF LEFT FOOT SKIN, EXTERNAL APPROACH (05/05/18) EXCISION OF RIGHT FOOT SKIN, EXTERNAL APPROACH (05/05/18) EXCISION OF TOE NAIL, EXTERNAL APPROACH (05/05/18) GROUP PSYCHOTHERAPY (12/01/18) INDIVID PSYCHOTHERAP NEC (07/24/13) INDIVIDUAL PSYCHOTHERAPY, COGNITIVE-BEHAVIORAL (12/01/18) INDIVIDUAL PSYCHOTHERAPY, SUPPORTIVE (12/01/18) INSERTION OF INTRALUM DEV INTO INF VENA CAVA, PERC APPROACH (05/24/16) MEDICATION MANAGEMENT (12/12/18) MEDS MGMT FOR SUBSTANCE ABUSE TREATMENT, NICOTINE REPLACE (05/30/18) MEDS MGMT FOR SUBSTANCE ABUSE TREATMENT, OTH REPL MED (05/30/18) OTHER GROUP THERAPY (07/24/13) PSYCHIA INTERV/EVAL NEC (01/02/14) PSYCHIAT DRUG THERAP NEC (04/30/15) SUPPOR VERBAL PSYCHOTHER (05/25/13) Family History: States: No Known Family Hx - Social History Hx Tobacco Use: Yes Hx Alcohol Use: Yes Hx Substance Use: Yes - Immunization History Hx Tetanus Toxoid Vaccination: No Hx Influenza Vaccination: No Hx Pneumococcal Vaccination: No Review Of Systems Constitutional: Negative for: Fever, Chills Cardiovascular: Negative for: Chest Pain, Palpitations Respiratory: Negative for: Cough, Shortness of Breath Gastrointestinal: Negative for: Nausea, Vomiting Neurological: Negative for: Weakness, Numbness Psych: Negative for: Suicidal ideation, Other (Homicidal ideation) Physical Exam - Physical Exam Appears: Non-toxic, Other (ETOH on breath, no sign of injury) Skin: Warm, Dry Head: Normacephalic Oral Mucosa: Moist Chest: Symmetrical, No Tenderness Cardiovascular: Rhythm Regular Respiratory: No Rales, No Rhonchi, No Wheezing Gastrointestinal/Abdominal: Soft, No Tenderness Neurological/Psych: Oriented x3 ED Course And Treatment O2 Sat by Pulse Oximetry: 96 (Room air) Pulse Ox Interpretation: Normal Progress Note: Motrin administered. Reevaluation Time: 02:16 Reassessment Condition: Improved Disposition Counseled Patient/Family Regarding: Studies Performed, Diagnosis, Need For Followup - Disposition Referrals: [facility] [Outside] Disposition: HOME/ ROUTINE Disposition Time: 00:36 Condition: FAIR Prescriptions: Ibuprofen [Motrin] 600 mg PO TID PRN #12 tab PRN Reason: Pain, Moderate (4-7) Forms: [facility] (German), General Discharge Instructions - Clinical Impression Clinical Impression: Alcohol intoxication - Scribe Statement The provider has reviewed the documentation as recorded by the Scribe Darren Flores All medical record entries made by the Scribe were at my direction and personally dictated by me. I have reviewed the chart and agree that the record accurately reflects my personal performance of the history, physical exam, medical decision making, and the department course for this patient. I have also personally directed, reviewed, and agree with the discharge instructions and disposition.
[2019-01-08 02:21] VITALS: BP 130/80; PULSE 96; RESP 20; TEMP 99.2; O2SAT 97
== END 2019-01-08 02:25 | disposition home or self-care (01) ==
LOC: C.ER 00:21
DX: F10.129 Alcohol abuse with intoxication, unspecified (principal); Y90.9 Presence of alcohol in blood, level not specified

== ENCOUNTER 2019-01-21 00:57 | Emergency (ER) | payer MEDICAID | END 2019-01-21 05:48 | disposition home or self-care (01) | LOC: C.ER 00:57 ==